=== PATIENT | female | born 1945 | race Caucasian/White ===

== ENCOUNTER 2016-06-11 10:15 | Emergency (ER) | payer MEDICARE, MEDICAID ==
[2016-06-11 10:41] VITALS: BP 148/92
[2016-06-11] MEDS ORDERED: Ondansetron INJ* 2 MG/ML VIAL IV ONE (11:17)
[2016-06-11] MEDS ORDERED: NS 0.9% 1000 ML* 1,000 ML BOLUS ONE (11:17)
--- NOTE | 2016-06-11 11:17 | UC ---
Abdominal Pain Female HPI - HPI Summary HPI Summary: Copious vomiting, diarrhea, and nausea starting 5 days ago. Has not been able to keep track of how many episodes per day. Feels sweaty and feverish, no measured temps. Has had similar episodes before, saw GI about a year ago and "they couldn't find anything wrong with me." Thought it was her house water that was making her ill because of high sulfur content. No hx of abdominal surgery. In Apr 2015 ? pancreatitis. Denies melena, BRBPR; occasional trace blood in vomit. - History of Current Complaint Chief Complaint: UCGI Stated Complaint: VOMITING/DIARRHEA Time Seen by Provider: 06/11/16 10:37 Hx Obtained From: Patient ?: No Onset/Duration: Gradual Onset, Lasting Days Timing: Constant Severity Initially: Moderate Severity Currently: Moderate Location: Diffuse Radiates: Yes Radiates to: Flank - R Character: Cramping, Dull Aggravating Factor(s): Food Alleviating Factor(s): NPO Associated Signs and Symptoms: Positive: Urinary Symptoms - freq, Decreased Appetite, Nausea, Vomiting, Diarrhea. Negative: Cough, Blood in Stool Allergies/Adverse Reactions: Allergies Allergy/AdvReac Type Severity Reaction Status Date / Time Ketorolac Tromethamine Allergy Severe Anaphylatic Verified 06/11/16 10:41 [From Toradol] Shock Latex Allergy Severe Anaphylatic Verified 06/11/16 10:41 Shock Aspirin Allergy Intermediate Anxiety Verified 06/11/16 10:41 Levofloxacin [From Levaquin] Allergy Intermediate Vomiting Verified 06/11/16 10: 41 Penicillins Allergy Intermediate Hives Verified 06/11/16 10:41 Sulfa Drugs Allergy Intermediate Hives Verified 06/11/16 10:41 Ceftriaxone Allergy Mild Hives Verified 06/11/16 10:41 Ibuprofen AdvReac Intermediate Abdominal Verified 06/11/16 10:41 Pain PMH/Surg Hx/FS Hx/Imm Hx Endocrine History Of: Reports: Diabetes Denies: Thyroid Disease Cardiovascular History Of: Denies: Cardiac Disorders, Hypertension, Congestive Heart Failure Respiratory History Of: Reports: COPD, Asthma, Pneumonia, Pulmonary Embolism GI/ History Of: Denies: Ulcer, Gastrointestinal Bleed, Renal Disease Neurological History Of: Reports: Migraine Psychological History Of: Reports: Depression - Surgical History Surgical History: Yes Surgery Procedure, Year, and Place: hysterectomy, knee, sinus, wrist injury repaired - Family History Known Family History: Positive: Cardiac Disease, Diabetes, Respiratory Disease - Social History Alcohol Use: None Substance Use Type: None Smoking Status (MU): Heavy Every Day Tobacco Smoker Type: Cigarettes Amount Used/How Often: 1/2 PPD Household Exposure Type: Cigarettes - Immunization History Most Recent Influenza Vaccination: 2012- jan Most Recent Tetanus Shot: 2009 Most Recent Pneumonia Vaccination: 2009 Review of Systems Constitutional: Fatigue Skin: Negative Eyes: Negative ENT: Negative Respiratory: Negative Cardiovascular: Negative Gastrointestinal: Abdominal Pain, Vomiting, Diarrhea Genitourinary: Negative Motor: Negative Neurovascular: Negative Musculoskeletal: Negative Neurological: Negative Psychological: Negative All Other Systems Reviewed And Are Negative: Yes Physical Exam Triage Information Reviewed: Yes Appearance: Pain Distress, Obese Vital Signs: Initial Vital Signs Temp 98.1 F 06/11/16 10:30 Resp 20 06/11/16 10:30 BP 148/92 06/11/16 10:30 Pulse Ox 96 06/11/16 10:30 Vital Signs Reviewed: Yes Eye Exam: Normal Eyes: Positive: Conjunctiva Clear ENT: Positive: Hearing grossly normal, TMs normal, Other: - MM very dry and pasty. Negative: Pharyngeal erythema, Nasal congestion Dental Exam: Other - dentures Neck exam: Normal Neck: Positive: Supple, Nontender, No Lymphadenopathy Respiratory Exam: Normal Respiratory: Positive: Chest non-tender, Lungs clear, Normal breath sounds, No respiratory distress, No accessory muscle use Cardiovascular: Positive: No Murmur, Tachycardia - 100 on exam Abdomen Description: Positive: Soft, CVA Tenderness (R) - mild. Negative: Nontender - diffuse mild tenderness, barb epigastric, Distended, Guarding, McBurney's Point Tenderness, Peritoneal Signs Bowel Sounds: Positive: Present Musculoskeletal Exam: Normal Neurological Exam: Normal Neurological: Positive: Alert, Muscle Tone Normal, Fatigued Psychological Exam: Normal Skin Exam: Normal Abd Pain Female Course/Dx - Differential Dx/Diagnosis Provider Diagnoses: vomiting. diarrhea. abdominal pain. dehydration - Physician Notification/Consults Discussed Patient Care With: Courtney Ellis Time Discussed With Above Provider: 11:18 Instructed by Provider To: MD Will See In ED Discharge - Discharge Plan Condition: Stable Disposition: TRANS HIGHER L OF CARE FAC
[2016-06-11] MEDS ORDERED: Ondansetron INJ* 2 MG/ML VIAL ONE (11:33)
== END 2016-06-11 12:02 | disposition short-term general hospital (02) ==
LOC: UCEAST 10:15
DX: R11.10 Vomiting, unspecified (principal); R19.7 Diarrhea, unspecified; R10.84 Generalized abdominal pain; E86.0 Dehydration; E66.9 Obesity, unspecified; Z88.5 Allergy status to narcotic agent; Z88.6 Allergy status to analgesic agent; Z88.1 Allergy status to other antibiotic agents; Z88.2 Allergy status to sulfonamides; Z88.0 Allergy status to penicillin; F17.210 Nicotine dependence, cigarettes, uncomplicated
CPT/HCPCS: 81002; 96360; 96361; 96374; 96376; 99213; G0463; J2405

== ENCOUNTER 2016-06-11 12:18 | Emergency (ER) | payer MEDICARE, MEDICAID ==
[2016-06-11] MEDS ORDERED: Ondansetron INJ* 2 MG/ML VIAL ONE (13:11)
[2016-06-11] MEDS ORDERED: Ondansetron INJ* 2 MG/ML VIAL IV ONE (13:11)
[2016-06-11 13:31] LABS: Hematocrit 42 % (35-47); Hemoglobin 13.5 g/dl (12.0-16.0); Mean Corpuscular HGB Conc 32 g/dl (31-36); Mean Corpuscular Hemoglobin 28 pg (27-31); Mean Corpuscular Volume 88 fL (80-97); Mean Platelet Volume 9 um3 (7.4-10.4); Red Blood Count 4.79 10^6/ul (4.0-5.4); Red Cell Distribution Width 18 % (10.5-15); White Blood Count 7.1 10^3/ul (3.5-10.8)
[2016-06-11 13:53] LABS: Albumin 3.7 g/dL (3.2-5.2); BUN/Creatinine Ratio 11.4 (8-20); C Reactive Protein 5.84 mg/L (< 5.00); Calcium 9.2 mg/dL (8.6-10.3); EGFR African American 82.2 (>60); EGFR Non-African American 63.9 (>60); Globulin 2.8 g/dL (2-4); Potassium 3.3 mmol/L (3.5-5.0); Total Bilirubin 0.8 mg/dL (0.2-1.0); Total Protein 6.5 g/dL (6.4-8.9)
[2016-06-11 13:54] LABS: Troponin I 0.02 ng/mL (<0.04)
[2016-06-11 14:44] LABS: Urine Bacteria Absent (Absent); Urine Bilirubin Negative (Negative); Urine Glucose Negative (Negative); Urine Nitrite Negative (Negative)
[2016-06-11] MEDS ORDERED: Iodixanol* (CONTRAST) 320 MG/ML 100 ML SDV IV ONE (15:08)
--- NOTE | 2016-06-11 15:43 | RAD ---
INDICATION: Abdominal pain, nausea vomiting and diarrhea. COMPARISON: Comparison is made with a prior CT angiogram of the chest from February 17, [address] of the abdomen and pelvis from April 07, 2015. TECHNIQUE: A CT scan of the abdomen and pelvis was performed with intravenous and oral contrast following intravenous injection of 110 ml of Visipaque 320 nonionic contrast. Contiguous axial sections were obtained from the lung bases through the symphysis pubis. Images were reconstructed in the coronal and sagittal planes. FINDINGS: There is mild dependent bilateral lower lobe subsegmental atelectasis. No pleural effusion is present. The liver and spleen are within normal limits in size without significant focal abnormality. No calcified gallstones are seen. The pancreas appears to be within normal limits in size. There is a 2.6 cm soft tissue density left adrenal mass which is unchanged from prior studies favoring a benign adenoma. The right adrenal gland appears normal. The kidneys are normal in size. No hydronephrosis is present. No significant focal renal abnormality is seen. The aorta is normal in caliber with moderate to severe calcific plaque present. No significant enlarged retroperitoneal lymph nodes are seen. The stomach, small and large bowel appear nondistended. There is increased soft tissue density present in the region of the cardia of the stomach possibly due to incomplete distention although a mass cannot be excluded. The appendix appears to be within normal limits. There is thickening of the wall of the distal small bowel and throughout the colon from the cecum to the rectum consistent with an enterocolitis. No free intraperitoneal air or fluid is seen. No significant focal osseous abnormality is seen. IMPRESSION: 1. ENTEROCOLITIS CONSIDER INFECTIOUS, INFLAMMATORY BOWEL AND LESS LIKELY ISCHEMIC ETIOLOGIES. 2. INCREASED SOFT TISSUE DENSITY IN THE CARDIA OF THE STOMACH POSSIBLY DUE TO INCOMPLETE DISTENTION ALTHOUGH CANNOT EXCLUDE A MASS. CONSIDER AN UPPER GI SERIES OR ENDOSCOPY FOR FURTHER EVALUATION. 3. STABLE LEFT ADRENAL MASS.
[2016-06-11] MEDS ORDERED: Potassium Chloride LIQUID* 20 MEQ PACKET PO ONE (16:16)
--- NOTE | 2016-06-11 16:18 | ED ---
lilia Interiano Timothy, scribed for Fredrick Ball MD on 06/11/16 at 1238 . Abdominal Pain/Female - HPI Summary HPI Summary: Kavya Trejo is a 70 yo female presenting to [facility] as a transfer from with intermittent 10/10 sharp abd pain and CP and N/V/D since 06/06/16. She also c/o subjective fever. She states her pain increases and she vomits with any food intake. She has been treated with NS 500 ml Bolus. Her MHx includes DM, migraine, syncopy, COPD, asthma, PE, GERD, PTSD, depression, MRSA, and tobacco. - History of Current Complaint Chief Complaint: EDNauseaVomitDiarrh Stated Complaint: VOMITTING/DIARRHEA Time Seen by Provider: 06/11/16 12:27 Hx Obtained From: Patient Onset/Duration: Sudden Onset, Lasting Days, Still Present Timing: Intermittent Episode Lasting - minutes Severity Initially: Moderate Severity Currently: Mild Pain Intensity: 0 Pain Scale Used: 0-10 Numeric Radiates: No Character: Sharp Aggravating Factor(s): Food Alleviating Factor(s): Nothing Associated Signs and Symptoms: Positive: Fever, Chest Pain, Nausea, Vomiting, Diarrhea Allergies/Adverse Reactions: Allergies Allergy/AdvReac Type Severity Reaction Status Date / Time Ketorolac Tromethamine Allergy Severe Anaphylatic Verified 06/11/16 12:28 [From Toradol] Shock Latex Allergy Severe Anaphylatic Verified 06/11/16 12:28 Shock Aspirin Allergy Intermediate Anxiety Verified 06/11/16 12:28 Levofloxacin [From Levaquin] Allergy Intermediate Vomiting Verified 06/11/16 12: 28 Penicillins Allergy Intermediate Hives Verified 06/11/16 12:28 Sulfa Drugs Allergy Intermediate Hives Verified 06/11/16 12:28 Ceftriaxone Allergy Mild Hives Verified 06/11/16 12:28 Ibuprofen AdvReac Intermediate Abdominal Verified 06/11/16 12:28 Pain PMH/Surg Hx/FS Hx/Imm Hx Endocrine/Hematology History: Reports: Hx Blood Transfusions, Hx Diabetes Denies: Hx Systemic Lupus Erythematosus, Hx Thyroid Disease Cardiovascular History: Reports: Hx Peripheral Vascular Disease, Hx Syncope Denies: Hx Congestive Heart Failure, Hx Hypertension Respiratory History: Reports: Hx Asthma, Hx Chronic Bronchitis, Hx Chronic Obstructive Pulmonary Disease (COPD), Hx Pneumonia, Hx Pulmonary Embolism, Other Respiratory Problems/Disorders - COPD GI History: Reports: Hx Gastroesophageal Reflux Disease, Hx Hiatal Hernia Denies: Hx Gastrointestinal Bleed, Hx Ulcer History: Denies: Hx Dialysis, Hx Renal Disease Musculoskeletal History: Reports: Hx Back Problems Denies: Hx Arthritis, Hx Rheumatoid Arthritis Sensory History: Reports: Hx Cataracts, Hx Contacts or Glasses Opthamlomology History: Reports: Hx Cataracts, Hx Contacts or Glasses Neurological History: Reports: Hx Migraine Psychiatric History: Reports: Hx Depression, Hx Post Traumatic Stress Disorder, Other Psychiatric Issues/Disorders - on "nerve pills" prior. Family concerned about depression. 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 Denies: Hx Clostridium Difficile, Hx Hepatitis, Hx Human Immunodeficiency Virus (HIV), Hx Shingles, Hx Tuberculosis, Hx Known/Suspected VRE, Hx Known/ Suspected VRSA, History Other Infectious Disease, Traveled Outside the [place] in Last 30 Days - Family History Known Family History: Positive: Cardiac Disease, Diabetes, Respiratory Disease, Other - cancer, kidney failure - Social History Alcohol Use: None Substance Use Type: Reports: None Hx Tobacco Use: Yes Smoking Status (MU): Heavy Every Day Tobacco Smoker Type: Cigarettes Amount Used/How Often: 1/2 PPD Review of Systems Positive: Fever - subjective Eyes: Negative ENT: Negative Positive: Chest Pain Respiratory: Negative Positive: Abdominal Pain, Vomiting, Diarrhea, Nausea Genitourinary: Negative Musculoskeletal: Negative Skin: Negative Neurological: Negative Psychological: Normal All Other Systems Reviewed And Are Negative: Yes Physical Exam - Summary Physical Exam Summary: VITAL SIGNS: Reviewed. GENERAL: Patient is an obese female who is lying comfortable in the stretcher. Patient is not in any acute respiratory distress. HEAD AND FACE: Normocephalic and atraumatic. EYES: PERRLA, EOMI x 2, No injected conjunctiva. EARS: Hearing grossly intact. Ear canals and tympanic membranes are WNL. MOUTH: Oropharynx within normal limits. NECK: Supple, trachea is midline, no adenopathy, no JVD. CHEST: Symmetric, no tenderness at palpation LUNGS: Clear to auscultation bilaterally. No wheezing or crackles. CVS: RRR,, S1 and S2 present, no murmurs or gallops appreciated. ABDOMEN: Soft, RLQ tenderness. No signs of distention. Positive bowel sounds. No rebound no guarding, and no masses palpated. No abdominal bruit or pulsations. EXTREMITIES: FROM in all major joints, no edema, no cyanosis or clubbing. NEURO: Alert and oriented x 3. No acute neurological deficits. Speech is normal. SKIN: Dry and warm Triage Information Reviewed: Yes Vital Signs On Initial Exam: Initial Vitals Temp Pulse Resp BP Pulse Ox 99.2 F 69 18 113/79 96 06/11/16 12:25 06/11/16 12:25 06/11/16 12:25 06/11/16 12:25 06/11/16 12:25 Vital Signs Reviewed: Yes Diagnostics - Vital Signs Vital Signs Temp Pulse Resp BP Pulse Ox 06/11/16 12:25 99.2 F 69 18 113/79 96 - Laboratory Lab Results: Lab Results 06/11/16 06/11/16 06/11/16 Range/Units 13:19 13:19 13:19 WBC 7.1 (3.5-10.8) 10^3/ul RBC 4.79 (4.0-5.4) 10^6/ul Hgb 13.5 (12.0-16.0) g/dl Hct 42 (35-47) % MCV 88 (80-97) fL MCH 28 (27-31) pg MCHC 32 (31-36) g/dl RDW 18 H (10.5-15) % Plt Count 206 (150-450) 10^3/ul MPV 9 (7.4-10.4) um3 Neut % (Auto) 46.9 (38-83) % Lymph % (Auto) 40.9 (25-47) % Imperial % (Auto) 5.6 (1-9) % Eos % (Auto) 5.7 (0-6) % Baso % (Auto) 0.9 (0-2) % Absolute Neuts (auto) 3.3 (1.5-7.7) 10^3/ul Absolute Lymphs (auto) 2.9 (1.0-4.8) 10^3/ul Absolute Monos (auto) 0.4 (0-0.8) 10^3/ul Absolute Eos (auto) 0.4 (0-0.6) 10^3/ul Absolute Basos (auto) 0.1 (0-0.2) 10^3/ul Absolute Nucleated RBC 0 10^3/ul Nucleated RBC % 0 Sodium 135 (133-145) mmol/L Potassium 3.3 L (3.5-5.0) mmol/L Chloride 103 (101-111) mmol/L Carbon Dioxide 31 (22-32) mmol/L Anion Gap 1 L (2-11) mmol/L BUN 10 (6-24) mg/dL Creatinine 0.88 (0.51-0.95) mg/dL Est GFR ( Amer) 82.2 (>60) Est GFR (Non-Af Amer) 63.9 (>60) BUN/Creatinine Ratio 11.4 (8-20) Glucose 94 (70-100) mg/dL Lactic Acid 1.0 (0.5-2.0) mmol/L Calcium 9.2 (8.6-10.3) mg/dL Total Bilirubin 0.80 (0.2-1.0) mg/dL AST 12 L (13-39) U/L ALT 3 L (7-52) U/L Alkaline Phosphatase 77 (34-104) U/L Total Creatine Kinase 48 (10-223) U/L Troponin I 0.02 (<0.04) ng/mL C-Reactive Protein 5.84 H (< 5.00) mg/L B-Natriuretic Peptide ( - 100) pg/mL Total Protein 6.5 (6.4-8.9) g/dL Albumin 3.7 (3.2-5.2) g/dL Globulin 2.8 (2-4) g/dL Albumin/Globulin Ratio 1.3 (1-3) Amylase 22 L (29-103) U/L Lipase 24 (11.0-82.0) U/L /10/21 Range/Units 13:19 WBC (3.5-10.8) 10^3/ul RBC (4.0-5.4) 10^6/ul Hgb (12.0-16.0) g/dl Hct (35-47) % MCV (80-97) fL MCH (27-31) pg MCHC (31-36) g/dl RDW (10.5-15) % Plt Count (150-450) 10^3/ul MPV (7.4-10.4) um3 Neut % (Auto) (38-83) % Lymph % (Auto) (25-47) % Imperial % (Auto) (1-9) % Eos % (Auto) (0-6) % Baso % (Auto) (0-2) % Absolute Neuts (auto) (1.5-7.7) 10^3/ul Absolute Lymphs (auto) (1.0-4.8) 10^3/ul Absolute Monos (auto) (0-0.8) 10^3/ul Absolute Eos (auto) (0-0.6) 10^3/ul Absolute Basos (auto) (0-0.2) 10^3/ul Absolute Nucleated RBC 10^3/ul Nucleated RBC % Sodium (133-145) mmol/L Potassium (3.5-5.0) mmol/L Chloride (101-111) mmol/L Carbon Dioxide (22-32) mmol/L Anion Gap (2-11) mmol/L BUN (6-24) mg/dL Creatinine (0.51-0.95) mg/dL Est GFR ( Amer) (>60) Est GFR (Non-Af Amer) (>60) BUN/Creatinine Ratio (8-20) Glucose (70-100) mg/dL Lactic Acid (0.5-2.0) mmol/L Calcium (8.6-10.3) mg/dL Total Bilirubin (0.2-1.0) mg/dL AST (13-39) U/L ALT (7-52) U/L Alkaline Phosphatase (34-104) U/L Total Creatine Kinase (10-223) U/L Troponin I (<0.04) ng/mL C-Reactive Protein (< 5.00) mg/L B-Natriuretic Peptide 134 H ( - 100) pg/mL Total Protein (6.4-8.9) g/dL Albumin (3.2-5.2) g/dL Globulin (2-4) g/dL Albumin/Globulin Ratio (1-3) Amylase (29-103) U/L Lipase (11.0-82.0) U/L Result Diagrams: 06/11/16 13:19 06/11/16 13:19 Lab Statement: Any lab studies that have been ordered have been reviewed, and results considered in the medical decision making process. - CT A/P CT Interpretation: Positive (See Comments) - IMPRESSION: 1. ENTEROCOLITIS CONSIDER INFECTIOUS, INFLAMMATORY BOWEL AND LESS LIKELY ISCHEMIC ETIOLOGIES. 2. INCREASED SOFT TISSUE DENSITY IN THE CARDIA OF THE STOMACH POSSIBLY DUE TO INCOMPLETE DISTENTION ALTHOUGH CANNOT EXCLUDE A MASS. CONSIDER AN UPPER GI SERIES OR ENDOSCOPY FOR FURTHER EVALUATION. 3. STABLE LEFT ADRENAL MASS. CT Interpretation Completed By: Radiologist - EKG 1249 Cardiac Rate: NL - 67 EKG Interpretation: NSr @ 67 BPM, no ST elevations Re-Evaluation - Re-Evaluation First Eval Re-Evaluation Time: 16:10 Change: Improved Comment: Pt feels much better, and is agreeable to be discharged. Abdominal Pain Fem Course/Dx - Course Course Of Treatment: Kavya Trejo is a 70 yo female presenting to [facility] as a transfer from with intermittent 10/10 sharp abd pain and CP and N/V/D since 06/06/16. She also c/o subjective fever. She states her pain increases and she vomits with any food intake. She has been treated with NS 500 ml Bolus. Her MHx includes DM, migraine, syncope, COPD, asthma, PE, GERD, PTSD, depression, MRSA, and tobacco. In the ED course she was given IVF and Zofran for nausea. Blood work shows a slight hypokalemia of 3.3, CRP 5.8. UA negative. Abdominal and pelvic CT IMPRESSION: 1. ENTEROCOLITIS CONSIDER INFECTIOUS, INFLAMMATORY BOWEL AND LESS LIKELY ISCHEMIC ETIOLOGIES. 2. INCREASED SOFT TISSUE DENSITY IN THE CARDIA OF THE STOMACH POSSIBLY DUE TO INCOMPLETE DISTENTION ALTHOUGH CANNOT EXCLUDE A MASS. CONSIDER AN UPPER GI SERIES OR ENDOSCOPY FOR FURTHER EVALUATION. 3. STABLE LEFT ADRENAL MASS. After patient was given above medications all her symptoms have resolved. She was given KCL and she is able to tolerate PO. No nausea or vomiting or diarrhea in the ED. I discussed all the findings and test results with the patient. Patient was instructed to return to the emergency room immediately if any of the symptoms return or worsens. They were explained the possibility of an early abdominal pathology which was not detected at this time despite the physical exam and testing. They understand and agree. Abdominal exam before discharge: Soft, NT. No signs of distention. BS present. No rebound no guarding, and no masses palpated. Patient is alert and oriented and hemodynamically stable. Patient is to follow up with primary care physician in the next 2 to 3 days. Patient agree and understands. - Diagnoses Differential Diagnosis: Positive: Appendicitis, Constipation, Diverticulitis, Pancreatitis Provider Diagnoses: Enterocolitis, Abdominal pain, Nausea and vomiting Discharge - Discharge Plan Condition: Stable Disposition: HOME Prescriptions: Ondansetron ODT TAB* [Zofran Odt TAB*] 4 mg PO Q6H PRN #10 tab.odt PRN Reason: Vomiting Patient Education Materials: Acute Abdominal Pain (ED), Acute Nausea and Vomiting (ED) Referrals: Priyanka Huff RN [Primary Care Provider] - 2 Days Additional Instructions: Please follow up with your primary care physician regarding your visit to the emergency department. Return to the emergency department with any new or recurring symptoms. The documentation as recorded by the lilia asif Timothy accurately reflects the service I personally performed and the decisions made by Quinn landin Walter, MD.
[2016-06-11 16:30] VITALS: BP 154/100
== END 2016-06-11 16:30 | disposition home or self-care (01) ==
LOC: ED 12:18
DX: K52.9 Noninfective gastroenteritis and colitis, unspecified (principal); R10.9 Unspecified abdominal pain; R11.2 Nausea with vomiting, unspecified; R50.9 Fever, unspecified; R07.9 Chest pain, unspecified; F17.210 Nicotine dependence, cigarettes, uncomplicated; E86.0 Dehydration; E66.9 Obesity, unspecified; Z88.5 Allergy status to narcotic agent; Z88.6 Allergy status to analgesic agent; Z88.1 Allergy status to other antibiotic agents; Z88.2 Allergy status to sulfonamides; Z88.0 Allergy status to penicillin
CPT/HCPCS: 36415; 74177; 80053; 81002; 81003; 81015; 82150; 82550; 83605; 83690; 83880; 84484; 85025; 85610; 85730; 86140; 93005; 96360; 96361; 96374; 96375; 96376; 99213; 99283; G0463; J2405; Q9967

== ENCOUNTER 2016-12-20 13:35 | Inpatient (IN) | payer MEDICARE, MEDICAID ==
[2016-12-20] MEDS ORDERED: methylPREDNISolone 125 MG* 2 ML VIAL IV ONE (14:44)
[2016-12-20] MEDS ORDERED: Albuterol/Ipratropium NEB.SOL* Albuterol 2.5 MG/Ipratropium 0.5 MG 3 ML INH ONE ×2 (14:44→17:51)
[2016-12-20 14:58] LABS: Hematocrit 40 % (35-47); Hemoglobin 12.7 g/dl (12.0-16.0); Mean Corpuscular HGB Conc 32 g/dl (31-36); Mean Corpuscular Hemoglobin 28 pg (27-31); Mean Corpuscular Volume 86 fL (80-97); Mean Platelet Volume 9 um3 (7.4-10.4); Red Blood Count 4.61 10^6/ul (4.0-5.4); Red Cell Distribution Width 16 % (10.5-15); White Blood Count 6.8 10^3/ul (3.5-10.8)
--- NOTE | 2016-12-20 15:07 | RAD ---
HISTORY: Cough COMPARISONS: June 03, 2016, May 01, 2016 VIEWS: 1: frontal portable view of the chest at 2:55 PM FINDINGS: LINES AND TUBES: None. CARDIOMEDIASTINAL SILHOUETTE: There is fullness of the right hilum. The aorta is tortuous. PLEURA: The costophrenic angles are sharp. No pleural abnormalities are noted. LUNG PARENCHYMA: There is an ill-defined nodular density of the right lower lung measuring 1.4 cm. ABDOMEN: The upper abdomen is clear. There is no subphrenic gas. BONES AND SOFT TISSUES: No bone or soft tissue abnormalities are noted. IMPRESSION: FULLNESS OF THE RIGHT HILUM WITH ILL-DEFINED NODULAR DENSITY OF THE RIGHT LOWER LUNG. RECOMMEND FURTHER EVALUATION WITH CONTRAST ENHANCED CT OF THE CHEST
[2016-12-20 15:14] LABS: Albumin 3.7 g/dL (3.2-5.2); BUN/Creatinine Ratio 10.1 (8-20); C Reactive Protein 23.64 mg/L (< 5.00); Calcium 9.5 mg/dL (8.6-10.3); EGFR African American 71.5 (>60); EGFR Non-African American 55.6 (>60); Globulin 3.4 g/dL (2-4); Potassium 3.9 mmol/L (3.5-5.0); Total Bilirubin 0.5 mg/dL (0.2-1.0); Total Protein 7.1 g/dL (6.4-8.9)
[2016-12-20 15:15] LABS: Troponin I 0.01 ng/mL (<0.04)
[2016-12-20] MEDS ORDERED: HYDROmorphone INJ* 1 MG/ML CARPUJECT SYRINGE IV ONE (16:13)
[2016-12-20] MEDS ORDERED: Ondansetron INJ* 2 MG/ML VIAL IV ONE (16:13)
[2016-12-20] MEDS ORDERED: Iodixanol* (CONTRAST) 320 MG/ML 100 ML SDV IV ONE (16:46)
--- NOTE | 2016-12-20 17:16 | RAD ---
INDICATION: Cough. Pneumonia. Prominent right hilum. Proximal nodularity. COMPARISON: Chest x-ray December 20, 2016 CT chest/abdomen/pelvis February 14, 2014 TECHNIQUE: Axial source images were obtained from the thoracic inlet to the hemidiaphragms. Coronal and sagittal reconstructed images were acquired. 80 mL of Visipaque 320 was injected The visualized neck to include the thyroid appear normal. Chest wall: There are no acute abnormalities of the bony thorax or chest wall. There is no supraclavicular, infraclavicular, or axillary lymphadenopathy. Lungs : There are patchy, peripheral, bilateral areas of parenchymal nodularity likely related to scarring from a prior inflammatory process. The findings in the right hemithorax are stable. The findings are left are slightly more conspicuous. A superimposed acute inflammatory process is not excluded and therefore follow-up is recommended as indicated clinically. There is coarsening of interstitium. There are no endobronchial lesions. Cardiomediastinal structures: The heart is normal in size. There is no pericardial effusion. There is no evidence of aortic aneurysm or dissection. The pulmonary vessels appear normal. There are mildly prominent mediastinal lymph nodes in the pretracheal space and right hilum but the findings are stable. The esophagus appears normal. Pleura : There are no pleural-based masses or effusions. Other: There are no acute or significant CT findings of the visualized upper abdomen. IMPRESSION: SCATTERED AREAS OF LINEAR PARENCHYMAL CHANGE AND NODULARITY STABLE IN THE RIGHT CHEST BUT MILDLY PROGRESSIVE THE LEFT CHEST. AN INFLAMMATORY PROCESS WITH SCARRING IS CONSIDERED MOST LIKELY. SUGGEST A FOLLOW-UP CHEST RADIOGRAPH IN ONE MONTH AND DEPENDING UPON THE FINDINGS CONSIDER NONCONTRAST CT IMAGING OF THE CHEST IN 3 MONTHS.
--- NOTE | 2016-12-20 18:56 | ED ---
Shabbir Interiano Thomas, scribed for Danial Caballero MD on 12/20/16 at 1436 . Shortness of Breath - HPI Summary HPI Summary: The pt is a 71 y/o F with a PMHx of COPD and PNA c/o SOB that began four days ago. The SOB is aggravated and alleviated by nothing. The patient has treated the SOB with her nebulizer treatment every 5 hours. These treatments have not alleviated the SOB. She is on home oxygen, but she has not been using it for an unclear reason. Pt additionally c/o a cough (with new-onset yellow and green production), sore throat, fatigue, and myalgia. She also notes a pleuritic CP. Pt denies fever in the ED, although she speculates she had on before. PMHx: COPD , PNA. SHx: heavy current smoker. - History of Current Complaint Chief Complaint: EDShortnessOfBreath Time Seen by Provider: 12/20/16 14:01 Hx Obtained From: Patient Onset/Duration: Lasting Days - onset 4 days ago, Still Present Timing: Constant Dyspnea At: Rest Aggrevating Factors: Nothing Alleviating Factors: Nothing Associated Signs & Symptoms: Cough (Productive) - with yellow and green production (new onset), Chest Pain w/Cough - pleuritic CP - Allergy/Home Medications Allergies/Adverse Reactions: Allergies Allergy/AdvReac Type Severity Reaction Status Date / Time Ketorolac Tromethamine Allergy Severe Anaphylatic Verified 06/11/16 12:28 [From Toradol] Shock Latex Allergy Severe Anaphylatic Verified 06/11/16 12:28 Shock Aspirin Allergy Intermediate Anxiety Verified 06/11/16 12:28 Levofloxacin [From Levaquin] Allergy Intermediate Vomiting Verified 06/11/16 12: 28 Penicillins Allergy Intermediate Hives Verified 06/11/16 12:28 Sulfa Drugs Allergy Intermediate Hives Verified 06/11/16 12:28 Ceftriaxone Allergy Mild Hives Verified 06/11/16 12:28 Ibuprofen AdvReac Intermediate Abdominal Verified 06/11/16 12:28 Pain Home Medications: Home Medications Clotrimazole MORRO* [Mycelex MORRO*] 10 mg PO .FIVE TIME A DAY 12/20/16 [ History Confirmed 12/20/16] Ergocalciferol CAP* [Drisdol CAP*] 50,000 unit PO Q7D 12/20/16 [History Confirmed 12/20/16] Roflumilast (NF) [Daliresp (NF)] 500 mcg PO DAILY 12/20/16 [History Confirmed ] Sodium Chloride 0.9% IRRIG* 250 ml .SEE ORDER DAILY 12/20/16 [History Confirmed 12/20/16] PMH/Surg Hx/FS Hx/Imm Hx Previously Healthy: No Endocrine/Hematology History: Reports: Hx Blood Transfusions, Hx Diabetes Denies: Hx Systemic Lupus Erythematosus, Hx Thyroid Disease Cardiovascular History: Reports: Hx Peripheral Vascular Disease, Hx Syncope Denies: Hx Congestive Heart Failure, Hx Hypertension Respiratory History: Reports: Hx Asthma, Hx Chronic Bronchitis, Hx Chronic Obstructive Pulmonary Disease (COPD), Hx Pneumonia, Hx Pulmonary Embolism, Other Respiratory Problems/Disorders - COPD GI History: Reports: Hx Gastroesophageal Reflux Disease, Hx Hiatal Hernia Denies: Hx Gastrointestinal Bleed, Hx Ulcer History: Denies: Hx Dialysis, Hx Renal Disease Musculoskeletal History: Reports: Hx Back Problems Denies: Hx Arthritis, Hx Rheumatoid Arthritis Sensory History: Reports: Hx Cataracts, Hx Contacts or Glasses Opthamlomology History: Reports: Hx Cataracts, Hx Contacts or Glasses Neurological History: Reports: Hx Migraine Psychiatric History: Reports: Hx Depression, Hx Post Traumatic Stress Disorder, Other Psychiatric Issues/Disorders - on "nerve pills" prior. Family concerned about depression. 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 Denies: Hx Clostridium Difficile, Hx Hepatitis, Hx Human Immunodeficiency Virus (HIV), Hx Shingles, Hx Tuberculosis, Hx Known/Suspected VRE, Hx Known/ Suspected VRSA, History Other Infectious Disease, Traveled Outside the [place] in Last 30 Days - Family History Known Family History: Positive: Cardiac Disease, Diabetes, Respiratory Disease, Other - cancer, kidney failure - Social History Alcohol Use: None Substance Use Type: Reports: None Hx Tobacco Use: Yes Smoking Status (MU): Heavy Every Day Tobacco Smoker Type: Cigarettes Amount Used/How Often: 1/2 PPD Review of Systems Positive: Other - POS: fatigue. Negative: Fever - afebrile in ED but she suspects a fever in the last few days Positive: Sore Throat Positive: Chest Pain - she has a pleuritic CP Positive: Shortness Of Breath - onset 4 days ago, Cough - with a new-onset yellow and green production Positive: Myalgia All Other Systems Reviewed And Are Negative: Yes Physical Exam Triage Information Reviewed: Yes Vital Signs On Initial Exam: Initial Vitals Temp Pulse Resp BP Pulse Ox 97.8 F 103 20 90/67 92 12/20/16 13:48 12/20/16 13:48 12/20/16 13:48 12/20/16 13:48 12/20/16 13:48 Vital Signs Reviewed: Yes Appearance: Positive: Well-Appearing, No Pain Distress Skin: Positive: Warm, Skin Color Reflects Adequate Perfusion, Dry Head/Face: Positive: Normal Head/Face Inspection Eyes: Positive: Normal ENT: Positive: Normal ENT inspection Neck: Positive: Supple, Nontender Respiratory/Lung Sounds: Positive: Breath Sounds Present, Other - There are diffuse expiratory wheezes. There is a decreased E to I time. Cardiovascular: Positive: RRR Abdomen Description: Positive: Nontender, Soft Bowel Sounds: Positive: Present Musculoskeletal: Positive: Normal Neurological: Positive: Normal Psychiatric: Positive: Normal, Affect/Mood Appropriate Diagnostics - Vital Signs Vital Signs Temp Pulse Resp BP Pulse Ox 12/20/16 13:48 97.8 F 103 20 90/67 92 - Laboratory Lab Results: Lab Results 12/20/16 12/20/16 12/20/16 Range/Units 14:50 14:50 14:50 WBC 6.8 (3.5-10.8) 10^3/ul RBC 4.61 (4.0-5.4) 10^6/ul Hgb 12.7 (12.0-16.0) g/dl Hct 40 (35-47) % MCV 86 (80-97) fL MCH 28 (27-31) pg MCHC 32 (31-36) g/dl RDW 16 H (10.5-15) % Plt Count 222 (150-450) 10^3/ul MPV 9 (7.4-10.4) um3 Neut % (Auto) 60.9 (38-83) % Lymph % (Auto) 23.5 L (25-47) % Geary % (Auto) 11.0 H (1-9) % Eos % (Auto) 4.0 (0-6) % Baso % (Auto) 0.6 (0-2) % Absolute Neuts (auto) 4.1 (1.5-7.7) 10^3/ul Absolute Lymphs (auto) 1.6 (1.0-4.8) 10^3/ul Absolute Monos (auto) 0.7 (0-0.8) 10^3/ul Absolute Eos (auto) 0.3 (0-0.6) 10^3/ul Absolute Basos (auto) 0 (0-0.2) 10^3/ul Absolute Nucleated RBC 0.01 10^3/ul Nucleated RBC % 0.1 INR (Anticoag Therapy) (0.89-1.11) Sodium 135 (133-145) mmol/L Potassium 3.9 (3.5-5.0) mmol/L Chloride 102 (101-111) mmol/L Carbon Dioxide 27 (22-32) mmol/L Anion Gap 6 (2-11) mmol/L BUN 10 (6-24) mg/dL Creatinine 0.99 H (0.51-0.95) mg/dL Est GFR ( Amer) 71.5 (>60) Est GFR (Non-Af Amer) 55.6 (>60) BUN/Creatinine Ratio 10.1 (8-20) Glucose 97 (70-100) mg/dL Lactic Acid 1.1 (0.5-2.0) mmol/L Calcium 9.5 (8.6-10.3) mg/dL Total Bilirubin 0.50 (0.2-1.0) mg/dL AST 13 (13-39) U/L ALT 4 L (7-52) U/L Alkaline Phosphatase 94 (34-104) U/L Troponin I 0.01 (<0.04) ng/mL C-Reactive Protein 23.64 H (< 5.00) mg/L Total Protein 7.1 (6.4-8.9) g/dL Albumin 3.7 (3.2-5.2) g/dL Globulin 3.4 (2-4) g/dL Albumin/Globulin Ratio 1.1 (1-3) 12/20/ Range/Units 14:50 WBC (3.5-10.8) 10^3/ul RBC (4.0-5.4) 10^6/ul Hgb (12.0-16.0) g/dl Hct (35-47) % MCV (80-97) fL MCH (27-31) pg MCHC (31-36) g/dl RDW (10.5-15) % Plt Count (150-450) 10^3/ul MPV (7.4-10.4) um3 Neut % (Auto) (38-83) % Lymph % (Auto) (25-47) % Geary % (Auto) (1-9) % Eos % (Auto) (0-6) % Baso % (Auto) (0-2) % Absolute Neuts (auto) (1.5-7.7) 10^3/ul Absolute Lymphs (auto) (1.0-4.8) 10^3/ul Absolute Monos (auto) (0-0.8) 10^3/ul Absolute Eos (auto) (0-0.6) 10^3/ul Absolute Basos (auto) (0-0.2) 10^3/ul Absolute Nucleated RBC 10^3/ul Nucleated RBC % INR (Anticoag Therapy) 0.94 (0.89-1.11) Sodium (133-145) mmol/L Potassium (3.5-5.0) mmol/L Chloride (101-111) mmol/L Carbon Dioxide (22-32) mmol/L Anion Gap (2-11) mmol/L BUN (6-24) mg/dL Creatinine (0.51-0.95) mg/dL Est GFR ( Amer) (>60) Est GFR (Non-Af Amer) (>60) BUN/Creatinine Ratio (8-20) Glucose (70-100) mg/dL Lactic Acid (0.5-2.0) mmol/L Calcium (8.6-10.3) mg/dL Total Bilirubin (0.2-1.0) mg/dL AST (13-39) U/L ALT (7-52) U/L Alkaline Phosphatase (34-104) U/L Troponin I (<0.04) ng/mL C-Reactive Protein (< 5.00) mg/L Total Protein (6.4-8.9) g/dL Albumin (3.2-5.2) g/dL Globulin (2-4) g/dL Albumin/Globulin Ratio (1-3) Result Diagrams: 12/20/16 14:50 12/20/16 14:50 Lab Statement: Any lab studies that have been ordered have been reviewed, and results considered in the medical decision making process. - Radiology CXR Xray Interpretation: Positive (See Comments) - FULLNESS OF THE RIGHT HILUM WITH ILL-DEFINED NODULAR DENSITY OF THE RIGHT LOWER LUNG. RECOMMEND FURTHER EVALUATION WITH CONTRAST ENHANCED CT OF THE CHEST. ED Physician has reviewed this report and agrees. Radiology Interpretation Completed By: Radiologist - CT CT Chest CT Interpretation: Positive (See Comments) - SCATTERED AREAS OF LINEAR PARENCHYMAL CHANGE AND NODULARITY STABLE IN THE RIGHT CHEST BUT MILDLY PROGRESSIVE THE LEFT CHEST. AN INFLAMMATORY PROCESS WITH SCARRING IS CONSIDERED MOST LIKELY. SUGGEST A FOLLOW-UP CHEST RADIOGRAPH IN ONE MONTH AND DEPENDING UPON THE FINDINGS CONSIDER NONCONTRAST CT IMAGING OF THE CHEST IN 3 MONTHS. ED Physician has reviewed this report and agrees. CT Interpretation Completed By: Radiologist - EKG 17:21 Cardiac Rate: NL - 85 BPM EKG Interpretation: Sinus rhythm. 15:01 Cardiac Rate: NL - 89 BPM EKG Interpretation: Sinus rhythm. Borderline tachycardia. Course/Dx - Course Course Of Treatment: Ms. Trejo came in with what sounded like an exacerbation of her COPD and she was treated accordingly. She improved some but will need more time and is being admitted to the hospitalist. - Diagnoses Provider Diagnoses: COPD exacerbation - Physician Notifications Discussed Care of Patient With: Moise Thapa Time Discussed With Above Provider: 18:31 Instructed by Provider To: Other - I consulted with Dr. Thapa, hospitalist, who [place] [facility] [place] - Discharge Plan Condition: Fair Disposition: ADMITTED TO [facility] Referrals: Kristian DACOSTA [employer]PERATIONS MANAGER,Priyanka [Primary Care Provider] - The documentation as recorded by the Shabbir asif Thomas accurately reflects the service I personally performed and the decisions made by me, Danial Caballero MD.
[2016-12-20] MEDS ORDERED: Al Hydrox/Mg Hydrox/Simet LIQ* 30 ML UDC PO PRN (19:41)
[2016-12-20] MEDS ORDERED: Albuterol 2.5 MG/3 ML NEB.SOL* (0.083%) INH SCH (20:00)
[2016-12-20] MEDS ORDERED: Ipratropium 0.5MG/2.5ML NEB* 0.5 MG/2.5 ML NEB.SOLN INH SCH (20:00)
[2016-12-20] MEDS: Enoxaparin(*) 40 MG/0.4 ML SYR SUBCUT SCH (22:03)
[2016-12-20] MEDS: Montelukast Sodium TAB* 10 MG PO SCH (22:04)
[2016-12-20] MEDS: methylPREDNISolone SOD 40 MG* 1 ML VIAL IV SCH (22:04)
[2016-12-20] MEDS: Acetaminophen TAB* 325 MG PO PRN (22:04)
[2016-12-20] MEDS: Omeprazole CAP* 20 MG PO SCH (22:04)
[2016-12-20] MEDS: Temazepam CAP* 15 MG PO PRN (22:04)
[2016-12-20] MEDS: Clotrimazole TROCHE* 10 MG TROCHE PO SCH (22:04)
[2016-12-20] MEDS: Cetirizine* 10 MG TAB PO SCH (22:04)
--- NOTE | 2016-12-21 01:37 | HP ---
HISTORY AND PHYSICAL: DATE OF ADMISSION: 12/20/16 CHIEF COMPLAINT: Shortness of breath. HISTORY OF PRESENT ILLNESS: This is a 71-year-old female with history of COPD, presenting with 1 week of shortness of breath, productive cough, and fevers. She notes that her grandsons have been sick recently and she has been around them. She believes that she was having fevers, but did not take her temperature. She normally can walk up a flight of stairs or a city block without becoming short of breath; however, the past few days she has only been able to walk a few steps around the house, but where she needs to stop and rest. She is supposed to be on 2 L of home O2 always; however, she ran out of oxygen 1 year ago and has not had it refilled. She also complains of a sore throat and runny nose. No chest pain. No nausea or vomiting. PAST MEDICAL HISTORY: 1. COPD. 2. Diabetes. MEDICATIONS: Current home medications: 1. Advair. 2. Spiriva. 3. Loratadine. 4. Metformin 500 mg daily. 5. Daliresp 500 mg daily. 6. Montelukast 10 mg daily. 7. Omeprazole 10 mg daily. SOCIAL HISTORY: She is a current tobacco user and smokes 10 cigarettes per day. She does not drink alcohol. 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 REVIEW OF SYSTEMS: She denies weight loss, weight gain, chills but complains of fevers. She denies blurry vision. She complains of a sore throat. She denies chest pain or palpitations, but no shortness of breath and cough productive of yellow sputum. She denies nausea, vomiting, constipation, or diarrhea. Denies headache, blurry vision, weakness, or dizziness. PHYSICAL EXAMINATION GENERAL: Alert, mildly tachypneic, unable to speak a full sentence without taking a breath. VITAL SIGNS: Temp 99.4, heart rate 91, respiratory rate 20, pulse ox 95% on 2 L , and blood pressure 106/72. HEENT: Dry oral mucosa. Pupils are equal, round, and reactive to light. NECK: No cervical lymphadenopathy. No JVP. CHEST: Mildly increased work of breathing, coarse rhonchi bilaterally with a prolonged expiratory phase and scattered wheezes. HEART: Regular, rate, and rhythm. No murmurs. ABDOMEN: Soft, nontender, and nondistended. Ventral hernia is reducible. EXTREMITIES: No edema. No rash. She has no cyanosis, no clubbing. DIAGNOSTIC STUDIES/LAB DATA: Labs on admission: White blood cell 6.8, hemoglobin 12.7, platelets 222. INR 0.94. Sodium 135, potassium 3.9, chloride 102, bicarb 27, BUN 10, creatinine 0.99. Chest x-ray showed fullness of the right hilum with ill-defined nodular density of the right lower lungs. So, a CT scan was obtained which showed scattered areas of linear parenchymal change and nodularity stable in the right chest, but mildly progressive on the left chest. An inflammatory process with scarring is considered most likely. Suggest a followup chest radiograph in 1 month. EKG: Normal sinus rhythm. Normal axis. Normal intervals. Isolated Q wave in lead III. No ST or T-wave changes. ASSESSMENT AND PLAN: This is a 71-year-old lady with history of chronic obstructive pulmonary disease, presenting with 1 week of cough productive of sputum, shortness of breath, and fevers. 1. Acute exacerbation of chronic obstructive pulmonary disease, likely infectious in nature given the history of being around sick children. Treat acute bronchitis with azithromycin and we will start standing nebulizers and Solu-Medrol. She needs oxygen at discharge as she does not have any at home. It is also prudent that she quit smoking tobacco; however, she is not ready to quit. 2. Inflammatory process on chest CT. This should be followed with a repeat chest x-ray in 1month. 3. Chronic hypoxic respiratory failure. She is stable on her home dose of 2 L home O2; however, again she has not had oxygen at home for 1 year. 4. Diabetes. Continue home metformin. 5. Prophylaxis. Subcutaneous Lovenox. [id number]/[facility] #: [id number] [facility]
[2016-12-21] MEDS: Albuterol/Ipratropium NEB.SOL* Albuterol 2.5 MG/Ipratropium 0.5 MG 3 ML INH SCH ×6 (03:23→23:35)
[2016-12-21] MEDS: methylPREDNISolone SOD 40 MG* 1 ML VIAL IV SCH ×3 (04:03→20:09)
[2016-12-21] MEDS: Acetaminophen TAB* 325 MG PO PRN ×2 (04:06→20:10)
[2016-12-21] MEDS: Clotrimazole TROCHE* 10 MG TROCHE PO SCH ×5 (06:00→22:29)
[2016-12-21] MEDS ORDERED: Roflumilast (NF) 500 MCG TAB PO SCH (09:00)
[2016-12-21] MEDS: Azithromycin TAB* 250 MG PO SCH (09:55)
--- NOTE | 2016-12-21 17:41 | PN ---
Subjective Date of Service: 12/21/16 Interval History: Patient feeling better but still sob. Objective Active Medications: Acetaminophen (Tylenol Tab*) 650 mg PO Q4H PRN PRN Reason: FEVER/PAIN Last Admin: 12/21/16 04:06 Dose: 650 mg Al Hydrox/Mg Hydrox/Simethicone (Maalox Plus*) 30 ml PO Q6H PRN PRN Reason: INDIGESTION Albuterol/Ipratropium (Duoneb (Albuterol 2.5 Mg/Ipratropium 0.5 Mg)) 1 neb INH [id number] AWAKE [facility] Last Admin: 12/21/16 14:40 Dose: 1 neb Azithromycin (Zithromax Tab*) 250 mg PO DAILY [facility] Last Admin: 12/21/16 09:55 Dose: 250 mg Cetirizine HCl (Zyrtec*) 10 mg PO BEDTIME [facility] Last Admin: 12/20/16 22:04 Dose: 10 mg Clotrimazole (Mycelex Garrison*) 10 mg PO FIVE TIMES DAILY [facility] Last Admin: 12/21/16 14:30 Dose: 10 mg Enoxaparin Sodium (Lovenox(*)) 40 mg SUBCUT Q24H [facility] Last Admin: 12/20/16 22:03 Dose: 40 mg Ergocalciferol (Drisdol Cap*) 50,000 unit PO Q7D [facility] Metformin HCl (Glucophage*) 500 mg PO QPM [facility] Methylprednisolone Sodium Succinate (Solu-Medrol 40 Mg) 40 mg IV Q8H [facility] Last Admin: 12/21/16 14:30 Dose: 40 mg Montelukast Sodium (Singulair Tab*) 10 mg PO BEDTIME [facility] Last Admin: 12/20/16 22:04 Dose: 10 mg Omeprazole (Prilosec Cap*) 20 mg PO BEDTIME [facility] Last Admin: 12/20/16 22:04 Dose: 20 mg Temazepam (Restoril Cap*) 15 mg PO BEDTIME PRN PRN Reason: INSOMNIA Last Admin: 12/20/16 22:04 Dose: 15 mg Vital Signs 12/20/16 12/20/16 12/20/16 18:41 19:19 20:13 Temperature 97.8 F Pulse Rate 83 94 Respiratory 20 16 16 Rate Blood Pressure 97/73 (mmHg) O2 Sat by Pulse 99 95 Oximetry 12/20/16 12/20/16 12/21/16 20:16 23:29 03:43 Temperature 97.7 F 97.5 F Pulse Rate 86 72 Respiratory 24 24 24 Rate Blood Pressure 97/69 93/68 (mmHg) O2 Sat by Pulse 96 96 Oximetry 12/21/16 12/21/16 12/21/16 06:55 07:51 11:12 Temperature 97.6 F Pulse Rate 64 65 78 Respiratory 24 14 18 Rate Blood Pressure 102/73 (mmHg) O2 Sat by Pulse 97 98 96 Oximetry 12/21/16 14:42 Temperature Pulse Rate 73 Respiratory 14 Rate Blood Pressure (mmHg) O2 Sat by Pulse 96 Oximetry Oxygen Devices in Use Now: Nasal Cannula Appearance: WD/WN woman sitting up in her chair in NAD Eyes: No Scleral Icterus Ears/Nose/Mouth/Throat: Mucous Membranes Moist Neck: NL Appearance and Movements; NL JVP, No Thyroid Enlargement, Masses Respiratory: - - Diffuse wheezing Cardiovascular: RRR, No Edema Abdominal: NL Sounds; No Tenderness; No Distention, No Hepatosplenomegaly Lymphatic: No Cervical Adenopathy Extremities: No Edema, No Clubbing, Cyanosis Skin: No Rash or Ulcers Neurological: Alert and Oriented x 3 Result Diagrams: 12/20/16 14:50 12/20/16 14:50 Additional Lab and Data: Lab Results 12/20/16 12/20/16 12/20/16 Range/Units 14:50 14:50 14:50 WBC 6.8 (3.5-10.8) 10^3/ul RBC 4.61 (4.0-5.4) 10^6/ul Hgb 12.7 (12.0-16.0) g/dl Hct 40 (35-47) % MCV 86 (80-97) fL MCH 28 (27-31) pg MCHC 32 (31-36) g/dl RDW 16 H (10.5-15) % Plt Count 222 (150-450) 10^3/ul MPV 9 (7.4-10.4) um3 Neut % (Auto) 60.9 (38-83) % Lymph % (Auto) 23.5 L (25-47) % Thomas % (Auto) 11.0 H (1-9) % Eos % (Auto) 4.0 (0-6) % Baso % (Auto) 0.6 (0-2) % Absolute Neuts (auto) 4.1 (1.5-7.7) 10^3/ul Absolute Lymphs (auto) 1.6 (1.0-4.8) 10^3/ul Absolute Monos (auto) 0.7 (0-0.8) 10^3/ul Absolute Eos (auto) 0.3 (0-0.6) 10^3/ul Absolute Basos (auto) 0 (0-0.2) 10^3/ul Absolute Nucleated RBC 0.01 10^3/ul Nucleated RBC % 0.1 INR (Anticoag Therapy) (0.89-1.11) Sodium 135 (133-145) mmol/L Potassium 3.9 (3.5-5.0) mmol/L Chloride 102 (101-111) mmol/L Carbon Dioxide 27 (22-32) mmol/L Anion Gap 6 (2-11) mmol/L BUN 10 (6-24) mg/dL Creatinine 0.99 H (0.51-0.95) mg/dL Est GFR ( Amer) 71.5 (>60) Est GFR (Non-Af Amer) 55.6 (>60) BUN/Creatinine Ratio 10.1 (8-20) Glucose 97 (70-100) mg/dL Lactic Acid 1.1 (0.5-2.0) mmol/L Calcium 9.5 (8.6-10.3) mg/dL Total Bilirubin 0.50 (0.2-1.0) mg/dL AST 13 (13-39) U/L ALT 4 L (7-52) U/L Alkaline Phosphatase 94 (34-104) U/L Troponin I 0.01 (<0.04) ng/mL C-Reactive Protein 23.64 H (< 5.00) mg/L Total Protein 7.1 (6.4-8.9) g/dL Albumin 3.7 (3.2-5.2) g/dL Globulin 3.4 (2-4) g/dL Albumin/Globulin Ratio 1.1 (1-3) 12/20/ Range/Units 14:50 WBC (3.5-10.8) 10^3/ul RBC (4.0-5.4) 10^6/ul Hgb (12.0-16.0) g/dl Hct (35-47) % MCV (80-97) fL MCH (27-31) pg MCHC (31-36) g/dl RDW (10.5-15) % Plt Count (150-450) 10^3/ul MPV (7.4-10.4) um3 Neut % (Auto) (38-83) % Lymph % (Auto) (25-47) % Thomas % (Auto) (1-9) % Eos % (Auto) (0-6) % Baso % (Auto) (0-2) % Absolute Neuts (auto) (1.5-7.7) 10^3/ul Absolute Lymphs (auto) (1.0-4.8) 10^3/ul Absolute Monos (auto) (0-0.8) 10^3/ul Absolute Eos (auto) (0-0.6) 10^3/ul Absolute Basos (auto) (0-0.2) 10^3/ul Absolute Nucleated RBC 10^3/ul Nucleated RBC % INR (Anticoag Therapy) 0.94 (0.89-1.11) Sodium (133-145) mmol/L Potassium (3.5-5.0) mmol/L Chloride (101-111) mmol/L Carbon Dioxide (22-32) mmol/L Anion Gap (2-11) mmol/L BUN (6-24) mg/dL Creatinine (0.51-0.95) mg/dL Est GFR ( Amer) (>60) Est GFR (Non-Af Amer) (>60) BUN/Creatinine Ratio (8-20) Glucose (70-100) mg/dL Lactic Acid (0.5-2.0) mmol/L Calcium (8.6-10.3) mg/dL Total Bilirubin (0.2-1.0) mg/dL AST (13-39) U/L ALT (7-52) U/L Alkaline Phosphatase (34-104) U/L Troponin I (<0.04) ng/mL C-Reactive Protein (< 5.00) mg/L Total Protein (6.4-8.9) g/dL Albumin (3.2-5.2) g/dL Globulin (2-4) g/dL Albumin/Globulin Ratio (1-3) Assess/Plan/Problems-Billing Assessment: 71 year old woman who stopped smoking two weeks ago and presents with SOB and found to have COPD exacerbation. - Patient Problems (1) COPD exacerbation Current Visit: Yes Status: Acute Code(s): J44.1 - CHRONIC OBSTRUCTIVE PULMONARY DISEASE W (ACUTE) EXACERBATION SNOMED Code(s): 443853902 Comment: Improved. Will try and wean off supplemental oxygen. Continue nebs, solumedrol and Zithromax (2) Diabetes Current Visit: Yes Status: Acute Code(s): E11.9 - TYPE 2 DIABETES MELLITUS WITHOUT COMPLICATIONS SNOMED Code(s): 32029514 Comment: DC metformin while here. FS with SSI (3) GERD (gastroesophageal reflux disease) Current Visit: Yes Status: Acute Code(s): K21.9 - GASTRO-ESOPHAGEAL REFLUX DISEASE WITHOUT ESOPHAGITIS SNOMED Code(s): 902982940 Comment: Continue PPI. Stable. (4) DVT prophylaxis Current Visit: Yes Status: Acute Code(s): WGA3226 - SNOMED Code(s): 167368584 Comment: Lovenox (5) Full code status Current Visit: Yes Status: Acute Code(s): Z78.9 - OTHER SPECIFIED HEALTH STATUS SNOMED Code(s): 190883823
[2016-12-21] MEDS ORDERED: Dextrose 50% Syringe 50 ML* 25 GM/50 ML SYRINGE IV PUSH PRN (17:46)
[2016-12-21] MEDS ORDERED: metFORMIN* 500 MG TAB PO SCH (18:00)
[2016-12-21] MEDS: Enoxaparin(*) 40 MG/0.4 ML SYR SUBCUT SCH (20:08)
[2016-12-21] MEDS: Benzonatate CAP* 100 MG PO PRN (20:09)
[2016-12-21] MEDS: Omeprazole CAP* 20 MG PO SCH (20:09)
[2016-12-21] MEDS: Montelukast Sodium TAB* 10 MG PO SCH (20:10)
[2016-12-21] MEDS: Cetirizine* 10 MG TAB PO SCH (20:10)
[2016-12-21] MEDS: Insulin LISPRO* 1 UNITS UNIT SUBCUT SCH (21:26)
[2016-12-22] MEDS: Albuterol/Ipratropium NEB.SOL* Albuterol 2.5 MG/Ipratropium 0.5 MG 3 ML INH SCH ×6 (03:26→23:32)
[2016-12-22] MEDS: methylPREDNISolone SOD 40 MG* 1 ML VIAL IV SCH ×3 (03:58→19:36)
[2016-12-22] MEDS: Clotrimazole TROCHE* 10 MG TROCHE PO SCH ×5 (05:52→21:35)
[2016-12-22] MEDS: Azithromycin TAB* 250 MG PO SCH (08:10)
[2016-12-22] MEDS: Insulin LISPRO* 1 UNITS UNIT SUBCUT SCH ×3 (08:11→17:05)
[2016-12-22] MEDS: Benzonatate CAP* 100 MG PO PRN ×2 (10:58→21:35)
--- NOTE | 2016-12-22 15:05 | PN ---
Subjective Date of Service: 12/22/16 Interval History: Patient still gets SOB on minimal exertion. Objective Active Medications: Acetaminophen (Tylenol Tab*) 650 mg PO Q4H PRN PRN Reason: FEVER/PAIN Last Admin: 12/21/16 20:10 Dose: 650 mg Al Hydrox/Mg Hydrox/Simethicone (Maalox Plus*) 30 ml PO Q6H PRN PRN Reason: INDIGESTION Albuterol/Ipratropium (Duoneb (Albuterol 2.5 Mg/Ipratropium 0.5 Mg)) 1 neb INH [id number] AWAKE [facility] Last Admin: 12/22/16 14:52 Dose: 1 neb Azithromycin (Zithromax Tab*) 250 mg PO DAILY HERMELINDA Last Admin: 12/22/16 08:10 Dose: 250 mg Benzonatate (Tessalon Cap*) 200 mg PO TID PRN PRN Reason: COUGH Last Admin: 12/22/16 10:58 Dose: 200 mg Cetirizine HCl (Zyrtec*) 10 mg PO BEDTIME [facility] Last Admin: 12/21/16 20:10 Dose: 10 mg Clotrimazole (Mycelex Garrison*) 10 mg PO FIVE TIMES DAILY [facility] Last Admin: 12/22/16 14:53 Dose: 10 mg Dextrose (D50w Syringe 50 Ml*) 12.5 gm IV PUSH .FOR FS < 60 - SS PRN PRN Reason: FS < 60 Enoxaparin Sodium (Lovenox(*)) 40 mg SUBCUT Q24H [facility] Last Admin: 12/21/16 20:08 Dose: 40 mg Ergocalciferol (Drisdol Cap*) 50,000 unit PO Q7D [facility] Insulin Human Lispro (Humalog*) 0 units SUBCUT AC HERMELINDA PRN Reason: Protocol Methylprednisolone Sodium Succinate (Solu-Medrol 40 Mg) 40 mg IV Q8H [facility] Last Admin: 12/22/16 12:40 Dose: 40 mg Montelukast Sodium (Singulair Tab*) 10 mg PO BEDTIME HERMELINDA Last Admin: 12/21/16 20:10 Dose: 10 mg Omeprazole (Prilosec Cap*) 20 mg PO BEDTIME HERMELINDA Last Admin: 12/21/16 20:09 Dose: 20 mg Temazepam (Restoril Cap*) 15 mg PO BEDTIME PRN PRN Reason: INSOMNIA Last Admin: 12/20/16 22:04 Dose: 15 mg Vital Signs 12/22/16 14:53 Pulse Rate 82 Respiratory 14 Rate O2 Sat by Pulse 96 Oximetry Oxygen Devices in Use Now: Nasal Cannula Appearance: Elderly woman lying in bed in NAD Eyes: No Scleral Icterus Ears/Nose/Mouth/Throat: Clear Oropharnyx Neck: No Thyroid Enlargement, Masses Respiratory: - - Bilateral wheezes Cardiovascular: - - S1S2 sindy Abdominal: NL Sounds; No Tenderness; No Distention, No Hepatosplenomegaly Lymphatic: No Cervical Adenopathy Extremities: No Edema Skin: No Rash or Ulcers Neurological: Alert and Oriented x 3 Result Diagrams: 12/20/16 14:50 12/20/16 14:50 Additional Lab and Data: Lab Results 12/20/16 12/20/16 12/20/16 Range/Units 14:50 14:50 14:50 WBC 6.8 (3.5-10.8) 10^3/ul RBC 4.61 (4.0-5.4) 10^6/ul Hgb 12.7 (12.0-16.0) g/dl Hct 40 (35-47) % MCV 86 (80-97) fL MCH 28 (27-31) pg MCHC 32 (31-36) g/dl RDW 16 H (10.5-15) % Plt Count 222 (150-450) 10^3/ul MPV 9 (7.4-10.4) um3 Neut % (Auto) 60.9 (38-83) % Lymph % (Auto) 23.5 L (25-47) % [place] % (Auto) 11.0 H (1-9) % Eos % (Auto) 4.0 (0-6) % Baso % (Auto) 0.6 (0-2) % Absolute Neuts (auto) 4.1 (1.5-7.7) 10^3/ul Absolute Lymphs (auto) 1.6 (1.0-4.8) 10^3/ul Absolute Monos (auto) 0.7 (0-0.8) 10^3/ul Absolute Eos (auto) 0.3 (0-0.6) 10^3/ul Absolute Basos (auto) 0 (0-0.2) 10^3/ul Absolute Nucleated RBC 0.01 10^3/ul Nucleated RBC % 0.1 INR (Anticoag Therapy) (0.89-1.11) Sodium 135 (133-145) mmol/L Potassium 3.9 (3.5-5.0) mmol/L Chloride 102 (101-111) mmol/L Carbon Dioxide 27 (22-32) mmol/L Anion Gap 6 (2-11) mmol/L BUN 10 (6-24) mg/dL Creatinine 0.99 H (0.51-0.95) mg/dL Est GFR ( Amer) 71.5 (>60) Est GFR (Non-Af Amer) 55.6 (>60) BUN/Creatinine Ratio 10.1 (8-20) Glucose 97 (70-100) mg/dL Lactic Acid 1.1 (0.5-2.0) mmol/L Calcium 9.5 (8.6-10.3) mg/dL Total Bilirubin 0.50 (0.2-1.0) mg/dL AST 13 (13-39) U/L ALT 4 L (7-52) U/L Alkaline Phosphatase 94 (34-104) U/L Troponin I 0.01 (<0.04) ng/mL C-Reactive Protein 23.64 H (< 5.00) mg/L Total Protein 7.1 (6.4-8.9) g/dL Albumin 3.7 (3.2-5.2) g/dL Globulin 3.4 (2-4) g/dL Albumin/Globulin Ratio 1.1 (1-3) 12/20/16 Range/Units 14:50 WBC (3.5-10.8) 10^3/ul RBC (4.0-5.4) 10^6/ul Hgb (12.0-16.0) g/dl Hct (35-47) % MCV (80-97) fL MCH (27-31) pg MCHC (31-36) g/dl RDW (10.5-15) % Plt Count (150-450) 10^3/ul MPV (7.4-10.4) um3 Neut % (Auto) (38-83) % Lymph % (Auto) (25-47) % [place] % (Auto) (1-9) % Eos % (Auto) (0-6) % Baso % (Auto) (0-2) % Absolute Neuts (auto) (1.5-7.7) 10^3/ul Absolute Lymphs (auto) (1.0-4.8) 10^3/ul Absolute Monos (auto) (0-0.8) 10^3/ul Absolute Eos (auto) (0-0.6) 10^3/ul Absolute Basos (auto) (0-0.2) 10^3/ul Absolute Nucleated RBC 10^3/ul Nucleated RBC % INR (Anticoag Therapy) 0.94 (0.89-1.11) Sodium (133-145) mmol/L Potassium (3.5-5.0) mmol/L Chloride (101-111) mmol/L Carbon Dioxide (22-32) mmol/L Anion Gap (2-11) mmol/L BUN (6-24) mg/dL Creatinine (0.51-0.95) mg/dL Est GFR ( Amer) (>60) Est GFR (Non-Af Amer) (>60) BUN/Creatinine Ratio (8-20) Glucose (70-100) mg/dL Lactic Acid (0.5-2.0) mmol/L Calcium (8.6-10.3) mg/dL Total Bilirubin (0.2-1.0) mg/dL AST (13-39) U/L ALT (7-52) U/L Alkaline Phosphatase (34-104) U/L Troponin I (<0.04) ng/mL C-Reactive Protein (< 5.00) mg/L Total Protein (6.4-8.9) g/dL Albumin (3.2-5.2) g/dL Globulin (2-4) g/dL Albumin/Globulin Ratio (1-3) Assess/Plan/Problems-Billing Assessment: 71 year old woman who stopped smoking two weeks ago and presents with SOB and found to have COPD exacerbation. - Patient Problems (1) COPD exacerbation Current Visit: Yes Status: Acute Code(s): J44.1 - CHRONIC OBSTRUCTIVE PULMONARY DISEASE W (ACUTE) EXACERBATION SNOMED Code(s): 910524391 Comment: Still wheezing. Continue nebs, solumedrol and Zithromax Expect her to break and improve in 1 -2 days (2) Diabetes Current Visit: Yes Status: Acute Code(s): E11.9 - TYPE 2 DIABETES MELLITUS WITHOUT COMPLICATIONS SNOMED Code(s): 87204089 Comment: DC metformin while here. FS with SSI (3) GERD (gastroesophageal reflux disease) Current Visit: Yes Status: Acute Code(s): K21.9 - GASTRO-ESOPHAGEAL REFLUX DISEASE WITHOUT ESOPHAGITIS SNOMED Code(s): 127728692 Comment: Continue PPI. Stable. (4) DVT prophylaxis Current Visit: Yes Status: Acute Code(s): NOS2549 - SNOMED Code(s): 215988885 Comment: Lovenox (5) Full code status Current Visit: Yes Status: Acute Code(s): Z78.9 - OTHER SPECIFIED HEALTH STATUS SNOMED Code(s): 922677885
[2016-12-22] MEDS: Enoxaparin(*) 40 MG/0.4 ML SYR SUBCUT SCH (19:36)
[2016-12-22] MEDS: Omeprazole CAP* 20 MG PO SCH (21:36)
[2016-12-22] MEDS: Montelukast Sodium TAB* 10 MG PO SCH (21:36)
[2016-12-22] MEDS: Temazepam CAP* 15 MG PO PRN (21:36)
[2016-12-22] MEDS: Cetirizine* 10 MG TAB PO SCH (21:36)
[2016-12-23] MEDS: Albuterol/Ipratropium NEB.SOL* Albuterol 2.5 MG/Ipratropium 0.5 MG 3 ML INH SCH ×5 (03:29→21:00)
[2016-12-23] MEDS: methylPREDNISolone SOD 40 MG* 1 ML VIAL IV SCH ×2 (04:13→13:11)
[2016-12-23] MEDS: Clotrimazole TROCHE* 10 MG TROCHE PO SCH ×5 (06:26→20:36)
[2016-12-23] MEDS ORDERED: Spiriva Inhaler DEVICE* 1 EACH DEVICE INH SCH (08:00)
[2016-12-23] MEDS ORDERED: Spiriva Inhaler DEVICE* 1 EACH DEVICE SCH (08:00)
[2016-12-23] MEDS: Insulin LISPRO* 1 UNITS UNIT SUBCUT SCH ×3 (08:41→17:08)
[2016-12-23] MEDS: Azithromycin TAB* 250 MG PO SCH (08:44)
[2016-12-23] MEDS: Tiotropium CAP.INH* CAP.INH/18 MCG (USE ORDER SET !) INH SCH (09:44)
[2016-12-23] MEDS: Mometasone/Formoter 200/5 MDI INH SCH ×2 (09:45→21:01)
--- NOTE | 2016-12-23 13:35 | PN ---
Subjective Date of Service: 12/23/16 Interval History: Patient reports some improvement in dyspnea. She is able to make it to the bathroom and back without dyspnea. Still has a productive cough. Objective Active Medications: Acetaminophen (Tylenol Tab*) 650 mg PO Q4H PRN PRN Reason: FEVER/PAIN Last Admin: 12/21/16 20:10 Dose: 650 mg Al Hydrox/Mg Hydrox/Simethicone (Maalox Plus*) 30 ml PO Q6H PRN PRN Reason: INDIGESTION Albuterol/Ipratropium (Duoneb (Albuterol 2.5 Mg/Ipratropium 0.5 Mg)) 1 neb INH [id number] AWAKE [facility] Last Admin: 12/23/16 11:25 Dose: 1 neb Azithromycin (Zithromax Tab*) 250 mg PO DAILY [facility] Last Admin: 12/23/16 08:44 Dose: 250 mg Benzonatate (Tessalon Cap*) 200 mg PO TID PRN PRN Reason: COUGH Last Admin: 12/22/16 21:35 Dose: 200 mg Cetirizine HCl (Zyrtec*) 10 mg PO BEDTIME [facility] Last Admin: 12/22/16 21:36 Dose: 10 mg Clotrimazole (Mycelex Garrison*) 10 mg PO FIVE TIMES DAILY [facility] Last Admin: 12/23/16 13:11 Dose: 10 mg Device (Tiotropium Inhaler Device*) 1 each .SEE ORDER .USE w/ SPIRIVA CAPS [facility] Dextrose (D50w Syringe 50 Ml*) 12.5 gm IV PUSH .FOR FS < 60 - SS PRN PRN Reason: FS < 60 Enoxaparin Sodium (Lovenox(*)) 40 mg SUBCUT Q24H [facility] Last Admin: 12/22/16 19:36 Dose: 40 mg Ergocalciferol (Drisdol Cap*) 50,000 unit PO Q7D [facility] Insulin Human Lispro (Humalog*) 0 units SUBCUT AC [facility] PRN Reason: Protocol Last Admin: 12/23/16 13:09 Dose: Not Given Mometasone Furoate/Formoterol Fumar (Dulera 200/5 Mdi*) 2 puff INH BID [facility] Last Admin: 12/23/16 09:45 Dose: 2 puff Montelukast Sodium (Singulair Tab*) 10 mg PO BEDTIME HERMELINDA Last Admin: 12/22/16 21:36 Dose: 10 mg Omeprazole (Prilosec Cap*) 20 mg PO BEDTIME HERMELINDA Last Admin: 12/22/16 21:36 Dose: 20 mg Temazepam (Restoril Cap*) 15 mg PO BEDTIME PRN PRN Reason: INSOMNIA Last Admin: 12/22/16 21:36 Dose: 15 mg Tiotropium Flushing (Spiriva Cap.Inh*) 1 cap INH DAILY [facility] Last Admin: 12/23/16 09:44 Dose: 1 cap Vital Signs: Temp Pulse Resp BP Pulse Ox 97.4 F 73 18 135/80 94 12/23/16 04:08 12/23/16 11:43 12/23/16 11:43 12/23/16 06:03 12/23/16 11:43 Oxygen Devices in Use Now: Nasal Cannula Appearance: Overall well appearing female in NAD eating lunch. Occasional productive cough. Respiratory: Symmetrical Chest Expansion and Respiratory Effort, - - diffuse wheezing and rhonchi Cardiovascular: NL Sounds; No Murmurs; No JVD, RRR Abdominal: NL Sounds; No Tenderness; No Distention Extremities: No Edema Skin: No Rash or Ulcers Neurological: Alert and Oriented x 3 Result Diagrams: 12/20/16 14:50 12/20/16 14:50 Additional Lab and Data: . Assess/Plan/Problems-Billing Assessment: 71 year old woman who stopped smoking two weeks ago and presents with SOB and found to have COPD exacerbation. - Patient Problems (1) COPD exacerbation Comment: Wheezing on exam but improved dyspnea and good oxygenation at rest Cont inhaled therapies Transition from IV to po steroids (2) Diabetes Comment: Hold metformin Cover hyperglycemia with SS Humalog (3) GERD (gastroesophageal reflux disease) Comment: Continue PPI. Stable. (4) DVT prophylaxis Comment: Lovenox (5) Full code status Status and Disposition: Inpatient. Possible dc home tomorrow. Will assess need for home O2 prior to dc
[2016-12-23] MEDS: Enoxaparin(*) 40 MG/0.4 ML SYR SUBCUT SCH (20:36)
[2016-12-23] MEDS: Cetirizine* 10 MG TAB PO SCH (20:36)
[2016-12-23] MEDS: Omeprazole CAP* 20 MG PO SCH (20:36)
[2016-12-23] MEDS: Montelukast Sodium TAB* 10 MG PO SCH (20:36)
[2016-12-24] MEDS: Albuterol/Ipratropium NEB.SOL* Albuterol 2.5 MG/Ipratropium 0.5 MG 3 ML INH SCH ×3 (04:07→08:20)
[2016-12-24] MEDS: Clotrimazole TROCHE* 10 MG TROCHE PO SCH ×2 (05:35→09:49)
[2016-12-24] MEDS: Insulin LISPRO* 1 UNITS UNIT SUBCUT SCH ×2 (08:11→11:47)
[2016-12-24] MEDS: Azithromycin TAB* 250 MG PO SCH (08:14)
[2016-12-24] MEDS: Tiotropium CAP.INH* CAP.INH/18 MCG (USE ORDER SET !) INH SCH (08:25)
[2016-12-24] MEDS: Mometasone/Formoter 200/5 MDI INH SCH (08:25)
[2016-12-24] MEDS ORDERED: Ergocalciferol CAP* 50000 UNIT PO SCH (09:00)
[2016-12-24 11:49] VITALS: BP 120/82
--- NOTE | 2016-12-25 07:52 | DS ---
CC: Priyanka Townsend NP * DISCHARGE SUMMARY: DATE OF ADMISSION: 12/20/16 DATE OF DISCHARGE: 12/24/16 PRIMARY CARE PROVIDER: Priyanka Townsend NP DISCHARGING PROVIDER: BREEZY Kahn. SUPERVISING PHYSICIAN: Dr. Barbra Ribera * (DICTATED BY BREEZY KAHN) PRIMARY DISCHARGE DIAGNOSES: 1. Chronic obstructive pulmonary exacerbation. 2. Continued tobacco abuse. SECONDARY DISCHARGE DIAGNOSES: 1. Non-insulin dependent diabetes. 2. Gastroesophageal reflux disease. DISCHARGE MEDICATIONS: 1. Albuterol inhaler one puff inhale q.6 hours as needed for shortness of breath. 2. DuoNeb one neb inhale q.4 hours as needed for shortness of breath. 3. Clotrimazole lulú 10 mg p.o. five times daily. 4. Ergocalciferol 32438 units p.o. weekly. 5. Advair 500/50 one puff inhale twice daily. 6. Loratadine 10 mg p.o. at bedtime. 7. Singulair 10 mg p.o. at bedtime. 8. Protonix 40 mg p.o. at bedtime. 9. Zantac 150 mg p.o. daily as needed for reflux. 10. Daliresp 500 mcg p.o. daily. 11. Spiriva 18 mcg inhale daily. 12. Metformin 500 mg p.o. daily. 13. Prednisone on a tapering schedule including 40 mg x 3 days followed by 20 mg x 3 days, followed by 10 mg x 3 days. MEDICATION CHANGES: Prednisone taper as outlined above. HOSPITAL IMAGIN. Chest x-ray shows a fullness in the right hilum with an ill-defined nodular density at the right lower lung, I am recommending further evaluation with a CT. 2. CT of the chest shows scattered areas of linear parenchymal change and nodularity stable in the right chest, but mildly progressive in the left chest and inflammatory process with scarring is featured most likely, recommend followup CT in 3 months. HOSPITAL COURSE: This is a 71-year-old female with [id number] COPD as well as non-insulin dependent diabetes and continued smoking habit who presents to the emergency department with complaints of shortness of breath, productive cough, and subjective fevers for approximately one week prior to admission. She was noted to have oxygen saturation approximately of 92% at the time of admission which took respiratory rates up to 24 breath per minute. She had wheezing and rhonchi appreciated on lung exam. Chest x-ray and followup CT did not demonstrate an acute infiltrate. The patient did given history of being around family members who had recently been sick with viral type illnesses. The patient was subsequently admitted for treatment of COPD exacerbation and acute bronchitis. She was started on IV corticosteroids, continued on her home inhaled medication and given regular DuoNeb as well as azithromycin. The patient's feelings of dyspnea slowly improved throughout her hospitalization stay. She remained afebrile. She continued to have some wheezing and rhonchi, although severity improved as her time in the hospital did. She initially required supplemental oxygen at approximately 3.5 L via nasal cannula to maintain saturations in the mid 90s or so. Oxygen was titrated off and she was able to maintain saturations in the mid upper 90s on room air at rest, in mid to low 90s with ambulation at the time of discharge. DISPOSITION AND FOLLOWUP PLAN: The patient is being discharged to home. Patient completed azithromycin therapy during the hospital stay but does require additional steroids at a tapering dose as outlined above. She was instructed to continue her inhaled medications. She is on appropriate maximum inhale therapy at home, but it is interested in potentially switching from Advair to Daliresp, which was easier to use and we will plan to talk to her primary care provider about initiating a prior authorization for this. The patient otherwise received instructions to continue all home medications and prednisone as prescribed as well as regular DuoNebs for the next several days. She did not require additional supplemental O2 at this time, but does utilize it at home at night. The patient was encouraged to quit smoking during her hospital stay, which she was reluctant to do. We recommend that she continue to follow up with her primary care provider regarding this. BREEZY KAHN [id number]/[facility] #: [id number] ADDIS
== END 2016-12-24 12:45 | disposition home or self-care (01) | DRG 191 ==
LOC: ED 13:35 → MED 18:31 → OBSVTOIN 12-22 12:00 → INTOOBSV 12-22 12:54
PROVIDERS: ADMIT Hospitalist; ATTEND Internal Medicine
DX: J44.1 Chronic obstructive pulmonary disease with (acute) exacerbation (principal); J96.11 Chronic respiratory failure with hypoxia; E11.51 Type 2 diabetes mellitus with diabetic peripheral angiopathy without gangrene; E11.65 Type 2 diabetes mellitus with hyperglycemia; E11.36 Type 2 diabetes mellitus with diabetic cataract; K21.9 Gastro-esophageal reflux disease without esophagitis; Z79.84 Long term (current) use of oral hypoglycemic drugs; F17.210 Nicotine dependence, cigarettes, uncomplicated; Z77.090 Contact with and (suspected) exposure to asbestos; J20.9 Acute bronchitis, unspecified; J44.0 Chronic obstructive pulmonary disease with (acute) lower respiratory infection; Z87.01 Personal history of pneumonia (recurrent); Z88.2 Allergy status to sulfonamides; Z88.0 Allergy status to penicillin; Z91.040 Latex allergy status; Z88.8 Allergy status to other drugs, medicaments and biological substances; Z86.711 Personal history of pulmonary embolism; K44.9 Diaphragmatic hernia without obstruction or gangrene; G43.909 Migraine, unspecified, not intractable, without status migrainosus; F32.9 Major depressive disorder, single episode, unspecified; F43.10 Post-traumatic stress disorder, unspecified; Z86.14 Personal history of Methicillin resistant Staphylococcus aureus infection; Z82.49 Family history of ischemic heart disease and other diseases of the circulatory system; Z83.3 Family history of diabetes mellitus; Z80.9 Family history of malignant neoplasm, unspecified
CPT/HCPCS: 36415; 71010; 71260; 80053; 83605; 84484; 85025; 85610; 86140; 87641; 93005; 94640; 94760; 94761; 99406; A9270-GY; G0378; J1170; J1650; J2405; J2920; J2930; Q9967

== ENCOUNTER 2017-05-19 19:33 | Inpatient (IN) | payer MEDICARE, MEDICAID ==
[2017-05-19] MEDS ORDERED: Acetaminophen TAB* 325 MG PO ONE (19:58)
[2017-05-19] MEDS ORDERED: Magnesium Sulfate 2 GM IV* 2 GM/50 ML BAG IVPB ONE (19:58)
[2017-05-19] MEDS ORDERED: methylPREDNISolone 125 MG* 2 ML VIAL IV ONE (19:58)
[2017-05-19] MEDS ORDERED: Albuterol/Ipratropium NEB.SOL* Albuterol 2.5 MG/Ipratropium 0.5 MG 3 ML INH ONE (20:02)
[2017-05-19] MEDS ORDERED: Azithromycin IV(*) 500 MG in NS 0.9% 250 ML* 250 ML IVPB ONE (20:04)
[2017-05-19] MEDS: Albuterol 2.5 MG/3 ML NEB.SOL* (0.083%) INH SCH ×2 (20:15→20:35)
[2017-05-19] MEDS: NS 0.9% 1000 ML* 2,000 ML IV ONE ×2 (20:26→21:55)
[2017-05-19] MEDS ORDERED: Ondansetron INJ* 2 MG/ML VIAL IV ONE (20:35)
[2017-05-19 20:49] LABS: INR 0.99 (0.77-1.02)
[2017-05-19 20:51] LABS: EGFR Non-African American 55.6 (>60)
--- NOTE | 2017-05-19 20:57 | RAD ---
INDICATION: Difficulty breathing COMPARISON: Chest x-ray dated December 20, 2016 TECHNIQUE: Single AP portable view of the chest was obtained. FINDINGS: Image quality is compromised due to the relative inferiority of a portable chest x-ray. There is a very mild degree of cardiomegaly relative to the previous chest x-ray. The pulmonary vasculature appears to be mildly engorged and indistinct. There are pleural-based linear densities at the mid-level bilateral lungs. There is questionable faint costophrenic angle blunting bilaterally. Visualized bones are normal for the patient's age. IMPRESSION: In the correct clinical setting chest x-ray findings could be compatible with mild cardiogenic pulmonary edema.
[2017-05-19 21:13] LABS: Hematocrit 39 % (35-47); Hemoglobin 13.1 g/dl (12.0-16.0); Mean Corpuscular HGB Conc 33 g/dl (31-36); Mean Corpuscular Hemoglobin 28 pg (27-31); Mean Corpuscular Volume 83 fL (80-97); Mean Platelet Volume 9 um3 (7.4-10.4); Platelet Count 254 10^3/ul (150-450); Red Blood Count 4.76 10^6/ul (4.0-5.4); Red Cell Distribution Width 16 % (10.5-15); White Blood Count 11.3 10^3/ul (3.5-10.8)
[2017-05-19 21:15] LABS: ABS Basophils 0 10^3/ul (0-0.2); ABS Eosinophils 0 10^3/ul (0-0.6); ABS Lymphocytes 0.7 10^3/ul (1.0-4.8); ABS Monocytes 0.4 10^3/ul (0-0.8); ABS Neutrophils 10.6 10^3/ul (1.5-7.7); ABS Nucleated RBC 0 10^3/ul; Eosinophil % 0 % (0-6); Lymphocyte % 6.3 % (25-47); Nucleated Red Blood Cells % 0.1
[2017-05-19] MEDS ORDERED: NS 0.9% 1000 ML* 1,000 ML IV ONE ×3 (21:54→23:23)
[2017-05-19] MEDS ORDERED: Clindamycin 900 MG IVPREMIX(* 900 MG/50 ML SDV IV ONE (21:54)
--- NOTE | 2017-05-19 22:16 | ED ---
Shabbir Interiano Thomas, scribed for Lamont Larios MD on 05/19/17 at 2010 . Shortness of Breath - HPI Summary HPI Summary: The patient is a 71 year old female with a history of COPD complaining of shortness of breath for the last two days. She is 2 liters of oxygen NC. She has a cough and feels feverish. She used her nebulizer treatment at home. She last smoked two weeks ago. - History of Current Complaint Chief Complaint: EDShortnessOfBreath Time Seen by Provider: 05/19/17 19:43 Hx Obtained From: Patient Onset/Duration: Lasting Days - 2, Still Present Timing: Constant Current Severity: Moderate Dyspnea At: Rest Aggrevating Factors: Nothing Alleviating Factors: Oxygen Associated Signs & Symptoms: Cough (Nonproductive), Fever Related History: Obesity - Allergy/Home Medications Allergies/Adverse Reactions: Allergies Allergy/AdvReac Type Severity Reaction Status Date / Time MS Ketorolac Tromethamine Allergy Severe Anaphylatic Verified 06/11/16 12:28 [From Toradol] Shock MS Latex [Latex] Allergy Severe Anaphylatic Verified 06/11/16 12:28 Shock MS Aspirin [Aspirin] Allergy Intermediate Anxiety Verified 06/11/16 12:28 MS Levofloxacin Allergy Intermediate Vomiting Verified 06/11/16 12:28 [From Levaquin] MS Penicillins [Penicillins] Allergy Intermediate Hives Verified 06/11/16 12:28 MS Sulfa Drugs [Sulfa Drugs] Allergy Intermediate Hives Verified 06/11/16 12:28 MS Ceftriaxone [Ceftriaxone] Allergy Mild Hives Verified 06/11/16 12:28 MS Ibuprofen [Ibuprofen] AdvReac Intermediate Abdominal Verified 06/11/16 12:28 Pain PMH/Surg Hx/FS Hx/Imm Hx Endocrine/Hematology History: Reports: Hx Blood Transfusions, Hx Diabetes Denies: Hx Systemic Lupus Erythematosus, Hx Thyroid Disease Cardiovascular History: Reports: Hx Peripheral Vascular Disease, Hx Syncope Denies: Hx Congestive Heart Failure, Hx Hypertension Respiratory History: Reports: Hx Asthma, Hx Chronic Bronchitis, Hx Chronic Obstructive Pulmonary Disease (COPD), Hx Pneumonia, Hx Pulmonary Embolism, Other Respiratory Problems/Disorders - COPD GI History: Reports: Hx Gastroesophageal Reflux Disease, Hx Hiatal Hernia Denies: Hx Gastrointestinal Bleed, Hx Ulcer History: Denies: Hx Dialysis, Hx Renal Disease Musculoskeletal History: Reports: Hx Back Problems Denies: Hx Arthritis, Hx Rheumatoid Arthritis Sensory History: Reports: Hx Cataracts, Hx Contacts or Glasses Denies: Hx Hearing Aid Opthamlomology History: Reports: Hx Cataracts, Hx Contacts or Glasses Neurological History: Reports: Hx Migraine Psychiatric History: Reports: Hx Depression, Hx Post Traumatic Stress Disorder, Other Psychiatric Issues/Disorders - on "nerve pills" prior. Family concerned about depression. 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 Denies: Hx Clostridium Difficile, Hx Hepatitis, Hx Human Immunodeficiency Virus (HIV), Hx Shingles, Hx Tuberculosis, Hx Known/Suspected VRE, Hx Known/ Suspected VRSA, History Other Infectious Disease, Traveled Outside the [place] in Last 30 Days - Family History Known Family History: Positive: Cardiac Disease, Diabetes, Respiratory Disease, Other - cancer, kidney failure - Social History Alcohol Use: None Substance Use Type: Reports: None Hx Tobacco Use: Yes Smoking Status (MU): Heavy Every Day Tobacco Smoker Type: Cigarettes Amount Used/How Often: 1/2 PPD Review of Systems Positive: Fever Positive: Shortness Of Breath, Cough All Other Systems Reviewed And Are Negative: Yes Physical Exam - Summary Physical Exam Summary: VITAL SIGNS: Reviewed. GENERAL: Patient is a well-developed and nourished FEMALE who is lying comfortable in the stretcher. Patient is not in any acute respiratory distress. HEAD AND FACE: No signs of trauma. No ecchy mosis, hematomas or skull depressions. No sinus tenderness. EYES: PERRLA, EOMI x 2, No injected conjunctiva, no nystagmus. EARS: Hearing grossly intact. Ear canals and tympanic membranes are within normal limits. MOUTH: Oropharynx within normal limits. NECK: Supple, trachea is midline, no adenopathy, no JVD, no carotid bruit, no c- spine tenderness, neck with full ROM. CHEST: Symmetric, no tenderness at palpation LUNGS: Decreased breath sounds. Diffuse wheezing in and out. CVS: Regular rate and rhythm, S1 and S2 present, no murmurs or gallops appreciated. ABDOMEN: Soft, non-tender. No signs of distention. No rebound no guarding, and no masses palpated. Bowel sounds are normal. EXTREMITIES: FROM in all major joints, no edema, no cyanosis or clubbing. NEURO: Alert and oriented x 3. No acute neurological deficits. Speech is normal and follows commands. SKIN: Dry and warm Triage Information Reviewed: Yes Vital Signs On Initial Exam: Initial Vitals Temp Pulse Resp BP Pulse Ox 100.1 F 101 37 125/81 90 05/19/17 19:35 05/19/17 19:35 05/19/17 19:35 05/19/17 19:35 05/19/17 19:35 Vital Signs Reviewed: Yes Diagnostics - Vital Signs Vital Signs Temp Pulse Resp BP Pulse Ox 05/19/17 19:35 100.1 F 101 37 125/81 90 - Laboratory Result Diagrams: 05/19/17 20:20 05/19/17 20:20 Lab Statement: Any lab studies that have been ordered have been reviewed, and results considered in the medical decision making process. - Radiology CXR Xray Interpretation: No Acute Changes - In the correct clinical setting chest x- ray findings could be compatible with mild cardiogenic pulmonary edema. Dr. Larios has reviewed this report. Radiology Interpretation Completed By: Radiologist - EKG 20:28 Cardiac Rate: NL EKG Rhythm: Sinus Rhythm - at 99 BPM EKG Interpretation: Normal intervals, normal axis, no ischemic change. Course/Dx - Course Assessment/Plan: The patient is a 71 year old female with shortness of breath for the last two days, fever, and a cough. In the ED she was given acetaminophen , Duo-Neb, SoluMedrol, IV fluids, Magnesium sulfate, and Zithromax. CXR shows In the correct clinical setting chest x-ray findings could be compatible with mild cardiogenic pulmonary edema. EKG was obtained. The patient is admitted to Dr. Wagoner. - Diagnoses Provider Diagnoses: COPD (chronic obstructive pulmonary disease), Bronchitis - Physician Notifications Discussed Care of Patient With: Lilliam Wagoner Time Discussed With Above Provider: 22:00 Instructed by Provider To: Admit As Inpatient Discharge - Discharge Plan Condition: Stable Disposition: ADMITTED TO [facility] Referrals: Kristian DACOSTA FURNACE CARETAKER,Priyanka [Primary Care Provider] - The documentation as recorded by the Shabbir asif Thomas accurately reflects the service I personally performed and the decisions made by , Lamont Larios MD.
[2017-05-19] MEDS ORDERED: Al Hydrox/Mg Hydrox/Simet LIQ* 30 ML UDC PO PRN (22:24)
[2017-05-19] MEDS ORDERED: Senna TAB PO PRN (22:24)
[2017-05-19] MEDS ORDERED: Ondansetron INJ* 2 MG/ML VIAL IV PRN (22:24)
[2017-05-19] MEDS ORDERED: Docusate CAP* 100 MG PO PRN (22:24)
[2017-05-19] MEDS ORDERED: Cetirizine* 10 MG TAB PO PRN (22:28)
[2017-05-19] MEDS ORDERED: Dextrose 50% Syringe 50 ML* 25 GM/50 ML SYRINGE IV PUSH PRN (22:30)
[2017-05-19] MEDS ORDERED: cefTRIAXone(*) 1 GM in NS 0.9% 50 ML* 50 ML IVPB ONE (22:48)
[2017-05-20] MEDS: NS 0.9% 1000 ML* 1,000 ML IV SCH ×3 (00:28→13:57)
--- NOTE | 2017-05-20 00:45 | HP ---
CC: [facility] * HISTORY AND PHYSICAL: DATE OF ADMISSION: 05/19/17 TIME OF EVALUATION: 2200. PRIMARY CARE PHYSICIAN: [facility]. CHIEF COMPLAINT: Shortness of breath. HISTORY OF PRESENT ILLNESS: This is a 71-year-old female with a past medical history of COPD, on home oxygen, who presents to the emergency room with worsening shortness of breath. The patient states about 2 weeks ago, she went to go see her primary care physician for shortness of breath. They prescribed her Z-Abundio and prednisone. She states she is not sure if she got any better; however, over the past few days, her shortness of breath has gotten significantly worse where she is short of breath at rest. She thinks she does have some chest discomfort, but not entirely clear. She has had terrible nausea , not able to vomit, decreased appetite, no abdominal pain. She has had some dysuria as well. She does state she has a productive cough and has had fevers and chills for the past few days. She has never seen a sweatband decorating machine operator in the past. She has had issues with her insurance of getting certain inhalers prescribed due to lack of insurance coverage. Otherwise, review of systems is negative in the emergency room. The patient had labs and imaging. She was given clindamycin and azithromycin, given a DuoNeb, albuterol neb, Tylenol, magnesium 2 g, methylprednisolone 125 mg and Zofran 8 mg. She got a liter of fluid and then started becoming hypotensive and was given another 2 L of fluid and referred to the hospitalist service for further evaluation. PAST MEDICAL HISTORY: 1. COPD, on home oxygen. 2. Tobacco use. 3. Diabetes. 4. GERD. MEDICATIONS: 1. Albuterol 1 to 2 puffs every 4 hours as needed for shortness of breath. 2. DuoNeb q.4 hours as needed. 3. Clotrimazole lulú 10 mg p.o. 5 times a day. 4. Ergocalciferol 500 units p.o. weekly. 5. Dulera 2 puffs inhaled b.i.d. 6. Loratadine 10 mg p.o. at bedtime. 7. Singulair 10 mg p.o. at bedtime. 8. Protonix 40 mg p.o. at bedtime. 9. Zantac 150 mg daily as needed for reflux. 10. Daliresp 500 mcg p.o. daily. 11. Spiriva 18 mcg daily. 12. Metformin 500 mg p.o. daily. ALLERGIES: TORADOL, LATEX, ASPIRIN, LEVOFLOXACIN, PENICILLIN, SULFA DRUGS, CEFTRIAXONE, IBUPROFEN. When asked specifically about her allergies to antibiotics, she cannot recall any specifics of having any allergies to antibiotics. SOCIAL HISTORY: The patient lives with her daughter and her son-in-law and her 2 grandsons. She is independent of her ADLs. 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 She states she stopped smoking about 2 or 3 weeks ago because she was feeling so unwell. No alcohol use. No illicit drug use. She is a full code. FAMILY HISTORY: Mother from CKD. Father from cancer. REVIEW OF SYSTEMS: A 14-point review of systems is as mentioned in the HPI, otherwise negative. PHYSICAL EXAMINATION GENERAL: Frail, moderately ill-appearing, in no acute distress. VITAL SIGNS: Temp 100.1, pulse rate 92, respiratory rate 22, oxygen saturation 94% on 3 L, blood pressure 91/48. HEENT: Head normocephalic. Pupils equal and reactive, anicteric. Oropharynx: Mucous membranes dry. No white patches appreciated. NECK: Supple. No lymphadenopathy. RESPIRATORY: Poor aeration. Minimal breath sounds. No increased work of breathing. Bilateral rhonchi and expiratory wheezing heard. CARDIAC: Regular rate and rhythm. Soft systolic murmur heard throughout. ABDOMEN: Soft, nontender, nondistended. EXTREMITIES: No clubbing, cyanosis, or edema. +1 DPs. NEUROLOGIC: Alert and oriented x3. No focal neurological deficits. DIAGNOSTIC STUDIES/LAB DATA: White count 11.3, hemoglobin 13.1, hematocrit 39 , platelets 254. INR is 0.99. Sodium 123, potassium 4.0, chloride 88, bicarb 27, BUN 18, creatinine 0.99. CRP is 96.94. BNP is 152. Influenza is negative. RADIOGRAPHIC DATA: Chest x-ray shows in the correct clinical setting, chest x- ray findings could be compatible with mild cardiogenic pulmonary edema. EKG shows normal sinus. ASSESSMENT: This is a 71-year-old female with past medical history of chronic obstructive lung disease, on oxygen and tobacco use, who presents to the emergency room with worsening dyspnea on exertion, found to be hypotensive. Shortness of breath. Assessment: The patient's findings are most consistent with the chronic obstructive lung disease exacerbation most likely secondary to a viral illness; however, with her white count and her hypotension concerning for sepsis, we will treat her empirically with antibiotics for now. Plan: We will admit her to the ICU for her persistent hypotension, continue to fluid resuscitate her. We will give her ceftriaxone, continue azithromycin, continue on her prednisone and inhaler regimen, incentive spirometer. The patient has never seen a sweatband decorating machine operator. I think it is worthwhile consulting them and getting her established. I am worried that she has end-stage chronic obstructive lung disease. I think further imaging is warranted if her symptoms do not improve over the next 24 hours. We will also check her troponin as well and follow up on her UA considering her symptoms of dysuria. CHRONIC MEDICAL PROBLEMS: 1. COPD as above. 2. Tobacco use. The patient has not smoked in the past 2 to 3 weeks. 3. Diabetes. We will place her on lispro sliding scale. 4. GERD. We will place her on omeprazole and place her on Protonix. 5. FEN. Place her on a diabetic diet with IV fluids. 6. DVT prophylaxis. The patient scores high risk. Place her on heparin subcu t.i.d. 7. Code status is full code. TIME SPENT: Greater than 60 minutes spent doing the history and physical, more than half the time spent in direct patient contact. [id number]/CPS #: [id number] MTDD
--- NOTE | 2017-05-20 00:46 | PN ---
Progress Note - Progress Note Date of Service: 05/20/17 Note: Patient remains hypotensive despite 4L NS - will start levophed and broaden her antibiotics. Once more stabilized will obtain chest CT. Will discuss with Dr. Hardwick as well.
[2017-05-20] MEDS: NS 0.9% 250 ML* 246 ML with Norepinephrine VIAL* 4 MG IV SCH ×8 (00:49→19:41)
[2017-05-20] MEDS ORDERED: Vancomycin(*) 1,500 MG in NS 0.9% 250 ML* 250 ML IVPB ONE (01:00)
[2017-05-20] MEDS ORDERED: Norepinephrine 16MCG/ML IVPRE* 4,000 MCG/250 ML BAG IV SCH (01:00)
[2017-05-20] MEDS: Mometasone/Formoter 200/5 MDI INH SCH ×3 (01:02→20:23)
[2017-05-20] MEDS: Cefepime 2 GM in Dextrose(*) 2 GM/50 ML BAG IV SCH ×2 (03:21→15:36)
[2017-05-20] MEDS: Montelukast Sodium TAB* 10 MG PO SCH ×2 (03:27→20:20)
[2017-05-20] MEDS: Albuterol 2.5 MG/3 ML NEB.SOL* (0.083%) INH PRN ×2 (04:02→20:24)
[2017-05-20 05:27] LABS: ABS Basophils 0 10^3/ul (0-0.2); ABS Eosinophils 0 10^3/ul (0-0.6); ABS Lymphocytes 0.3 10^3/ul (1.0-4.8); ABS Monocytes 0.2 10^3/ul (0-0.8); ABS Nucleated RBC 0 10^3/ul; Eosinophil % 0 % (0-6); Hematocrit 37 % (35-47); Hemoglobin 12.1 g/dl (12.0-16.0); Mean Corpuscular HGB Conc 33 g/dl (31-36); Mean Corpuscular Hemoglobin 27 pg (27-31); Mean Corpuscular Volume 84 fL (80-97); Mean Platelet Volume 9 um3 (7.4-10.4); Nucleated Red Blood Cells % 0; Platelet Count 236 10^3/ul (150-450); Red Blood Count 4.44 10^6/ul (4.0-5.4); Red Cell Distribution Width 16 % (10.5-15); White Blood Count 11.6 10^3/ul (3.5-10.8)
[2017-05-20] MEDS: Heparin VIAL(*) 5000 UNITS/ML VIAL (FIVE THOUSAND) SUBCUT SCH ×3 (05:31→21:43)
[2017-05-20] MEDS: Omeprazole CAP* 20 MG PO SCH (05:31)
[2017-05-20 05:42] LABS: EGFR Non-African American 62.1 (>60)
[2017-05-20] MEDS: Tiotropium CAP.INH* CAP.INH/18 MCG (USE ORDER SET !) INH SCH (08:00)
[2017-05-20] MEDS ORDERED: Spiriva Inhaler DEVICE* 1 EACH DEVICE INH ONE (09:00)
[2017-05-20] MEDS: Insulin LISPRO* 1 UNITS UNIT SUBCUT SCH ×3 (09:52→17:54)
[2017-05-20] MEDS: predniSONE TAB* 20 MG PO SCH (09:53)
[2017-05-20] MEDS: Clotrimazole TROCHE* 10 MG TROCHE PO SCH ×4 (09:53→21:43)
--- NOTE | 2017-05-20 10:10 | PN ---
Progress Note - Progress Note Date of Service: 05/20/17 Note: CCM Progress Note Discussed with Dr dover last PM Patient off Levophed Sitting up eating breakfast Feels better Nausea almost all gone Good spirits Patient reports 2 grandsons with whom she lives were ill with "the flu" Does not currently have a primary care provider as an outpatient Reports she regularly relapses and resumes smoking...she was intolerant of Chantix and has allergy to patches. Patient herself brings up hypnotism Counselled her re importance of smoking cessation SBP 90-115 HR 72 RR 15 SpO2 92(NC) Skin no diaphoresis, no cyanosis Sclerae anicteric, pupils equal Oral mucosa pink Neck supple Lungs with fine wheeze Lt lower Cor RRR no rub, no murmur Abd soft, obese, active, nontender Ext no cord, no calf tenderness, no edema WBC 11.6 Hgb 12.1 Plt 236 Na 131 K 4.0 BUN/creat 16/0.9 Trops 0.02; 0.01 BNP 152 IMP: Exacerbation COPD....improved Hypotension ...resolved Hyponatremia...better Hx DM PLAN: Decrease IVF to 75 ml/hr Continue Bronchodilator inhaler therapy Continue steroids Continue Abx DVT prophyl PO diet Mobilize as tolerated Can probably transfer out of ICU today T>30 min, CCM services rendered
[2017-05-20] MEDS: Vancomycin(*) 1,250 MG in NS 0.9% 250 ML* 250 ML IVPB SCH (13:58)
[2017-05-20] MEDS: ROFLUMILAST 500 MCG PO SCH (14:04)
[2017-05-20] MEDS: Azithromycin IV(*) 250 MG in NS 0.9% 250 ML* 250 ML IVPB SCH (20:19)
[2017-05-20] MEDS ORDERED: Azithromycin IV(*) 250 MG in NS 0.9% 250 ML* 250 ML IVPB SCH (23:00)
[2017-05-20] MEDS ORDERED: cefTRIAXone(*) 1 GM in NS 0.9% 50 ML* 50 ML IVPB SCH (23:00)
[2017-05-21] MEDS: Vancomycin(*) 1,250 MG in NS 0.9% 250 ML* 250 ML IVPB SCH ×2 (01:49→17:08)
[2017-05-21] MEDS: Albuterol 2.5 MG/3 ML NEB.SOL* (0.083%) INH PRN ×3 (02:54→23:58)
[2017-05-21] MEDS: Acetaminophen TAB* 325 MG PO PRN ×3 (03:30→21:58)
[2017-05-21] MEDS: Cefepime 2 GM in Dextrose(*) 2 GM/50 ML BAG IV SCH ×2 (03:31→14:51)
[2017-05-21] MEDS: Heparin VIAL(*) 5000 UNITS/ML VIAL (FIVE THOUSAND) SUBCUT SCH ×3 (06:05→21:40)
[2017-05-21] MEDS: Omeprazole CAP* 20 MG PO SCH (06:06)
[2017-05-21 06:32] LABS: EGFR Non-African American 56.9 (>60)
[2017-05-21] MEDS: Mometasone/Formoter 200/5 MDI INH SCH ×2 (07:52→19:50)
[2017-05-21] MEDS: Tiotropium CAP.INH* CAP.INH/18 MCG (USE ORDER SET !) INH SCH (07:52)
[2017-05-21] MEDS: Albuterol/Ipratropium NEB.SOL* Albuterol 2.5 MG/Ipratropium 0.5 MG 3 ML INH PRN (07:52)
[2017-05-21] MEDS ORDERED: metFORMIN* 500 MG TAB PO SCH (09:00)
[2017-05-21] MEDS: predniSONE TAB* 20 MG PO SCH (09:29)
[2017-05-21] MEDS: NS 0.9% 1000 ML* 1,000 ML IV SCH (09:29)
[2017-05-21] MEDS: Clotrimazole TROCHE* 10 MG TROCHE PO SCH ×4 (09:30→21:39)
[2017-05-21] MEDS: Insulin LISPRO* 1 UNITS UNIT SUBCUT SCH ×4 (09:30→21:39)
[2017-05-21] MEDS: ROFLUMILAST 500 MCG PO SCH (09:35)
[2017-05-21] MEDS ORDERED: Vancomycin Trough Check NOTE FOLLOW UP ONE (13:00)
--- NOTE | 2017-05-21 15:18 | PN ---
Subjective Date of Service: 05/21/17 Interval History: Patient seen and examined. Patient using IS in bed, appears SOB with 4-5 word sentences with appearing winded in between, but states she feels her breathing is better than before. No further hypotension, denies chest pain, no n/v, +cough , no fevers or chills. Objective Active Medications: Acetaminophen (Tylenol Tab*) 650 mg PO Q4H PRN PRN Reason: FEVER/PAIN Last Admin: 05/21/17 03:30 Dose: 650 mg Al Hydrox/Mg Hydrox/Simethicone (Maalox Plus*) 30 ml PO Q6H PRN PRN Reason: INDIGESTION Albuterol (Ventolin 2.5 Mg/3 Ml Neb.Radha*) 2.5 mg INH Q2H PRN PRN Reason: SOB/WHEEZING Last Admin: 05/21/17 02:54 Dose: 2.5 mg Albuterol/Ipratropium (Duoneb (Albuterol 2.5 Mg/Ipratropium 0.5 Mg)) 1 neb INH Q4H PRN PRN Reason: SOB/WHEEZING Last Admin: 05/21/17 07:52 Dose: 1 neb Cetirizine HCl (Zyrtec*) 5 mg PO DAILY PRN PRN Reason: CONGESTION Clotrimazole (Mycelex Garrison*) 10 mg PO QID [facility] Last Admin: 05/21/17 13:29 Dose: 10 mg Dextrose (D50w Syringe 50 Ml*) 12.5 gm IV PUSH .FOR FS < 60 - SS PRN PRN Reason: FS < 60 Docusate Sodium (Colace Cap*) 100 mg PO BID PRN PRN Reason: CONSTIPATION Heparin Sodium (Porcine) (Heparin Vial(*)) 5,000 units SUBCUT Q8HR [facility] Last Admin: 05/21/17 13:27 Dose: 5,000 units Cefepime HCl (Maxipime 2 Gm In Dextrose Duplex (*)) 2 gm in 50 mls @ 100 mls/ hr IV Q12H [facility] Last Admin: 05/21/17 14:51 Dose: 100 mls/hr Azithromycin 250 mg/ Sodium (Chloride) 250 mls @ 250 mls/hr IVPB Q24H [facility] Last Admin: 05/20/17 20:19 Dose: 250 mls/hr Vancomycin HCl 1,250 mg/ (Sodium Chloride) 250 mls @ 166.667 mls/hr IVPB Q12H [facility] Last Admin: 05/21/17 01:49 Dose: 166.667 mls/hr Sodium Chloride (Ns 0.9% 1000 Ml*) 1,000 mls @ 75 mls/hr IV PER RATE [facility] Last Admin: 05/21/17 09:29 Dose: 75 mls/hr Insulin Human Lispro (Humalog*) 0 units SUBCUT AC [facility] PRN Reason: Protocol Last Admin: 05/21/17 13:27 Dose: 5 unit Metformin HCl (Glucophage*) 500 mg PO DAILY [facility] Last Admin: 05/21/17 09:30 Dose: 500 mg Mometasone Furoate/Formoterol Fumar (Dulera 200/5 Mdi*) 2 puff INH BID [facility] Last Admin: 05/21/17 07:52 Dose: 2 puff Montelukast Sodium (Singulair Tab*) 10 mg PO BEDTIME [facility] Last Admin: 05/20/17 20:20 Dose: 10 mg Omeprazole (Prilosec Cap*) 20 mg PO 0600 [facility] Last Admin: 05/21/17 06:06 Dose: 20 mg Ondansetron HCl (Zofran Inj*) 4 mg IV Q4H PRN PRN Reason: NAUSEA/VOMITING Prednisone (Deltasone Tab*) 40 mg PO DAILY [facility] Last Admin: 05/21/17 09:29 Dose: 40 mg Roflumilast (Daliresp (Nf)) 500 mcg PO DAILY [facility] Last Admin: 05/21/17 09:35 Dose: Not Given Senna (Senokot Tab*) 1 tab PO BID PRN PRN Reason: CONSTIPATION Tiotropium [place] (Spiriva Cap.Inh*) 1 cap INH DAILY [facility] Last Admin: 05/21/17 07:52 Dose: 1 cap Vital Signs - 8 hr 05/21/17 05/21/17 05/21/17 07:35 07:58 08:00 Temperature 97.4 F Pulse Rate 67 71 Respiratory 16 18 18 Rate Blood Pressure 126/76 (mmHg) O2 Sat by Pulse 95 95 Oximetry 05/21/17 11:38 Temperature 97.9 F Pulse Rate 69 Respiratory 16 Rate Blood Pressure 115/66 (mmHg) O2 Sat by Pulse 97 Oximetry Oxygen Devices in Use Now: Nasal Cannula Appearance: Alert, NAD Eyes: No Scleral Icterus, PERRLA Ears/Nose/Mouth/Throat: Mucous Membranes Moist Neck: NL Appearance and Movements; NL JVP, Trachea Midline Respiratory: - - Accessory muscle use, increased WOB, mildly tachypneic, expiratory wheezes and diminished throughout lung lorenzo Cardiovascular: NL Sounds; No Murmurs; No JVD, RRR, No Edema Abdominal: NL Sounds; No Tenderness; No Distention Extremities: No Clubbing, Cyanosis Skin: No Rash or Ulcers Neurological: Alert and Oriented x 3 Nutrition: Taking PO's Result Diagrams: 05/20/17 05:15 05/21/17 05:53 Microbiology and Other Data: Microbiology 05/20/17 08:18 Gram Stain - Final Sputum Expectorated 05/20/17 02:10 Nasal Screen MRSA (PCR)(RODO) - Final Nasal Mrsa Detected 05/20/17 01:05 Legionella Urinary Antigen - Final Urine Negative Legionella Streptococcus pneumoniae Ag Screen - Final Negative S. pneumo Antigen Assess/Plan/Problems-Billing Assessment: This is a 71 year old female patient with hx of smoking and COPD that presented with acute SOB, cough and hypotension, downgraded from ICU, off pressors. - Patient Problems (1) COPD exacerbation Code(s): J44.1 - CHRONIC OBSTRUCTIVE PULMONARY DISEASE W (ACUTE) EXACERBATION SNOMED Code(s): 054874991245316 Comment: - Continue cefepime, prednisone, tiotropium, roflumilast and continuous O2 - Duonebs PRN - IS while awake - Will consult Dr. Crabtree, concerned she may be end-stage COPD - Walking sats on and off O2 if she can tolerate - Would benefit from PFTs (2) Hypotension Comment: - s/p aggressive fluid resuscitation - Off pressors - Normotensive (3) Diabetes Code(s): E11.9 - TYPE 2 DIABETES MELLITUS WITHOUT COMPLICATIONS SNOMED Code(s) : 23051219 Comment: - Hold metformin - Cover hyperglycemia with SS lispro (4) GERD (gastroesophageal reflux disease) Current Visit: No Status: Acute Code(s): K21.9 - GASTRO-ESOPHAGEAL REFLUX DISEASE WITHOUT ESOPHAGITIS SNOMED Code(s): 828977108 Comment: - Continue PPI (5) DVT prophylaxis Current Visit: No Status: Acute Code(s): ODT5102 - SNOMED Code(s): 073003125 Comment: - HSQ (6) Full code status Code(s): Z78.9 - OTHER SPECIFIED HEALTH STATUS SNOMED Code(s): 216464081 Status and Disposition: Remain inpatient
[2017-05-21] MEDS: Azithromycin IV(*) 250 MG in NS 0.9% 250 ML* 250 ML IVPB SCH ×2 (19:51→21:21)
[2017-05-21] MEDS: Montelukast Sodium TAB* 10 MG PO SCH (21:39)
[2017-05-21] MEDS ORDERED: Vancomycin per Pharmacy* NOTE FOLLOW UP PRN (23:13)
[2017-05-22] MEDS: Vancomycin(*) 1,250 MG in NS 0.9% 250 ML* 250 ML IVPB SCH (00:58)
[2017-05-22] MEDS: Cefepime 2 GM in Dextrose(*) 2 GM/50 ML BAG IV SCH ×2 (03:00→15:29)
[2017-05-22] MEDS: Omeprazole CAP* 20 MG PO SCH (05:55)
[2017-05-22] MEDS: Heparin VIAL(*) 5000 UNITS/ML VIAL (FIVE THOUSAND) SUBCUT SCH ×3 (05:55→21:08)
[2017-05-22] MEDS: Albuterol/Ipratropium NEB.SOL* Albuterol 2.5 MG/Ipratropium 0.5 MG 3 ML INH PRN ×3 (07:45→22:37)
[2017-05-22] MEDS: Tiotropium CAP.INH* CAP.INH/18 MCG (USE ORDER SET !) INH SCH (07:46)
[2017-05-22] MEDS: Mometasone/Formoter 200/5 MDI INH SCH ×2 (07:46→20:30)
[2017-05-22] MEDS: ROFLUMILAST 500 MCG PO SCH (08:46)
[2017-05-22] MEDS: Insulin LISPRO* 1 UNITS UNIT SUBCUT SCH ×3 (08:46→18:03)
[2017-05-22] MEDS: predniSONE TAB* 20 MG PO SCH (08:51)
[2017-05-22] MEDS: Clotrimazole TROCHE* 10 MG TROCHE PO SCH ×4 (08:52→21:08)
--- NOTE | 2017-05-22 10:51 | PN ---
Subjective Date of Service: 05/22/17 Interval History: Ms. Trejo states that she had a "terrible night" and felt quite short of breath. She feels that she finally got better after she had her nebulizer switched from albuterol to duonebs. She has felt much better overall during the day today but continues to need 2-3L NC. She denies chest pain or other complaint. Objective Active Medications: Acetaminophen (Tylenol Tab*) 650 mg PO Q4H PRN Al Hydrox/Mg Hydrox/Simethicone (Maalox Plus*) 30 ml PO Q6H PRN Albuterol (Ventolin 2.5 Mg/3 Ml Neb.Radha*) 2.5 mg INH Q2H PRN Albuterol/Ipratropium (Duoneb (Albuterol 2.5 Mg/Ipratropium 0.5 Mg)) 1 neb INH Q4H PRN Cetirizine HCl (Zyrtec*) 5 mg PO DAILY PRN Clotrimazole (Mycelex Garrison*) 10 mg PO QID HER[facility] Dextrose (D50w Syringe 50 Ml*) 12.5 gm IV PUSH .FOR FS < 60 - SS PRN Docusate Sodium (Colace Cap*) 100 mg PO BID PRN Heparin Sodium (Porcine) (Heparin Vial(*)) 5,000 units SUBCUT Q8HR [facility] Cefepime HCl (Maxipime 2 Gm In Dextrose Duplex (*)) 2 gm in 50 mls @ 100 mls/ hr IV Q12H [facility] Azithromycin 250 mg/ Sodium (Chloride) 250 mls @ 250 mls/hr IVPB Q24H [facility] Vancomycin HCl 1,250 mg/ (Sodium Chloride) 250 mls @ 166.667 mls/hr IVPB Q12H [facility] Insulin Human Lispro (Humalog*) 0 units SUBCUT AC [facility] Mometasone Furoate/Formoterol Fumar (Dulera 200/5 Mdi*) 2 puff INH BID [facility] Montelukast Sodium (Singulair Tab*) 10 mg PO BEDTIME [facility] Omeprazole (Prilosec Cap*) 20 mg PO 0600 [facility] Ondansetron HCl (Zofran Inj*) 4 mg IV Q4H PRN Pharmacy Consult (Vancomycin Per Pharmacy*) 1 note FOLLOW UP . PRN Prednisone (Deltasone Tab*) 40 mg PO DAILY [facility] Roflumilast (Daliresp (Nf)) 500 mcg PO DAILY REPLACED BY [facility] Senna (Senokot Tab*) 1 tab PO BID PRN Tiotropium [place] (Spiriva Cap.Inh*) 1 cap INH DAILY REPLACED BY [facility] Vital Signs: Temp Pulse Resp BP Pulse Ox 98.1 F 79 16 168/80 94 05/22/17 11:10 05/22/17 11:10 05/22/17 11:10 05/22/17 11:10 05/22/17 11:10 Oxygen Devices in Use Now: Nasal Cannula Appearance: Female sitting up in bed in NAD Eyes: No Scleral Icterus Ears/Nose/Mouth/Throat: Mucous Membranes Moist Neck: Trachea Midline Respiratory: Symmetrical Chest Expansion and Respiratory Effort, - - Coarse rhonchi bilaterally Cardiovascular: NL Sounds; No Murmurs; No JVD, No Edema Abdominal: NL Sounds; No Tenderness; No Distention Lymphatic: No Cervical Adenopathy Extremities: No Edema Skin: No Rash or Ulcers Neurological: Alert and Oriented x 3, NL Muscle Strength and Tone Nutrition: Taking PO's Result Diagrams: 05/20/17 05:15 05/21/17 05:53 Microbiology and Other Data: . Assess/Plan/Problems-Billing Assessment: Ms. Trejo is a 71 year old female with hx of smoking and COPD who was admitted on 05/19/17 with COPD exacerbation, initially in ICU for hypotension on vasopressors, now resolved. - Patient Problems (1) COPD exacerbation Comment: - Stop vanco and cefepime as no clear evidence of pneumonia. Continue azithromycin, prednisone, tiotropium, roflumilast and continuous O2. - Duonebs PRN - IS while awake - Will consult Dr. Crabtree, concerned she may be end-stage COPD - Walking sats on and off O2 if she can tolerate - Would benefit from PFTs (2) Hypotension Comment: - Resolved with fluids and vasopressors. - Suspect secondary to dehydration in setting of prolonged COPD exacerbation and poor oral intake. (3) Diabetes Comment: - BG well controlled. - Hold metformin, continue SSI coverage with meals. (4) GERD (gastroesophageal reflux disease) Current Visit: No Status: Acute Code(s): K21.9 - GASTRO-ESOPHAGEAL REFLUX DISEASE WITHOUT ESOPHAGITIS SNOMED Code(s): 744455156 Comment: - Continue PPI (5) DVT prophylaxis Comment: - Heparin SQ. (6) Full code status Comment: Status and Disposition: Inpatient. Anticipate discharge to home when medically stable.
[2017-05-22] MEDS: Acetaminophen TAB* 325 MG PO PRN (21:07)
[2017-05-22] MEDS: Azithromycin IV(*) 250 MG in NS 0.9% 250 ML* 250 ML IVPB SCH (21:07)
[2017-05-22] MEDS: Montelukast Sodium TAB* 10 MG PO SCH (21:08)
--- NOTE | 2017-05-22 23:52 | CONS ---
PULMONARY CONSULTATION REPORT: DATE OF CONSULT: 05/22/17 CONSULTATION REQUESTED BY: Una Martinez NP REASON FOR CONSULT: COPD evaluation. 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 The patient presents for evaluation of worsening shortness of breath. The patient reports recent sick contact. She has seen her primary care physician 2 weeks ago for shortness of breath, URI symptoms. She was prescribed Z-Abundio and prednisone. She did not see any improvement. Shortness of breath has worsened, not relieved by her nebulizers at home. The patient also had nausea, decreased appetite with no abdominal pain. She also had dysuria. She had also had subjective fevers and chills for few days. She also had productive cough with yellow phlegm. She was not able to get her inhalers due to lack of insurance coverage. The patient was also hypotensive in the emergency room, required 2 L of IV fluids with improvement. She was admitted with diagnosis of possible sepsis and pneumonia. The patient had chest x-ray performed in the emergency room. I have personally reviewed chest x -ray images. Evidence of mild airspace opacities present bilaterally. There is mild blunting of costophrenic angles. The patient was initiated on Rocephin and Zithromax for coverage of community-acquired pneumonia. She was also initiated on prednisone and bronchodilators. The patient reported improvement mostly with DuoNebs. She was initially getting albuterol nebulization. The patient normally uses DuoNeb at home. The patient was also on Dulera, Daliresp , and Spiriva at home. She also has history of GERD and is on therapy with omeprazole. She also has allergies and takes allergy medications as needed. The patient was also noted to have elevated white count on admission. Her sodium was slightly decreased at 131. The patient reported improvement in shortness of breath finally today since she started taking DuoNebs. She, however, has been becoming significantly short of breath with minimal exertion. PAST MEDICAL HISTORY: 1. COPD, on home O2. 2. Tobacco abuse history. 3. Diabetes. 4. GERD. 5. Obesity. MEDICATIONS: 1. Albuterol 1 to 2 puffs as needed every 4 hours for shortness of breath. 2. DuoNeb q.4 hours as needed. 3 Clotrimazole. 4. Ergocalciferol. 5. Dulera 2 puffs b.i.d. 6. Loratadine. 7. Singulair. 8. Protonix. 9. Zantac. 10. Daliresp. 11. Spiriva. 12. Metformin. ALLERGIES: TORADOL, LATEX, ASPIRIN, LEVOFLOXACIN, PENICILLIN, SULFA DRUGS, CEFTRIAXONE, IBUPROFEN. FAMILY HISTORY: Mother from chronic kidney disease. Father from cancer. SOCIAL HISTORY: Lives at home with her daughter and son-in-law. 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 She quit smoking 2 to 3 weeks ago when she started feeling sick. REVIEW OF SYSTEMS: All 14 systems reviewed and as per HPI. PHYSICAL EXAM: The patient is in bed, in no apparent distress. Vital Signs: Temperature 98.1, pulse 79 beats per minute, respiratory rate 16 per minute, O2 sat 94% on 3 L, blood pressure 168/80. HEENT: Pupils are equal and reactive to light. Mucous membranes moist. Mallampati class 4 airways. Respiratory: Diminished air entry bilaterally, scattered wheezing present. Cardiovascular: S1, S2 present, regular, no murmurs, gallops, or rubs. Abdomen: Obese, bowel sounds present. Skin: No rash or bruises. Musculoskeletal: Normal range of motion. No edema. Neurological: Alert, awake, oriented x3. No focal deficits. DIAGNOSTIC STUDIES/LAB DATA: Hemoglobin 12.1, hematocrit 37, platelet count 236. WBC 11.6 with left shift. Sodium 131, potassium 4.0, chloride 102, bicarb 20, BUN 20, creatinine 0.97, calcium 7.8. Chest x-ray as described above in HPI. IMPRESSION AND RECOMMENDATIONS: 71-year-old obese female former smoker with significant smoking history, quit recently with sick contacts and URI symptoms. Influenza A and B negative. Sputum Gram stain normal nelsy with MRSA, negative legionella strep pneumo antigen. Blood cultures negative to date. The patient with acute chronic obstructive pulmonary disease exacerbation likely secondary to community-acquired pneumonia. The patient started on antibiotics for community-acquired pneumonia. She is also receiving nebulizers. She reports improvement in her symptoms mostly with DuoNeb than just albuterol. Will continue with nebulizers q.4 to 6 hours as needed. She is also on long acting bronchodilators. The patient also with symptoms concerning for sleep apnea. The patient reports longstanding history of snoring, had sleep study years ago, which was positive. Will need repeat sleep study as outpatient. Consequences of untreated sleep apnea were discussed. She will need PFTs and 6-minute walk test as outpatient. Pathophysiology of chronic obstructive pulmonary disease was discussed in detail with the patient, importance of smoking cessation was discussed. The patient is currently on Spiriva HandiHaler, reports difficulty with the technique. She would benefit from Spiriva Respimat. Can continue with Dulera. She is also on roflumilast, which is recommended for recurrent exacerbations, which she denies having. Thank you for allowing me to participate in care of your patient. Will follow up with you. [id number]/[facility] #: [id number] ADDIS
[2017-05-23] MEDS: Heparin VIAL(*) 5000 UNITS/ML VIAL (FIVE THOUSAND) SUBCUT SCH ×3 (05:50→20:06)
[2017-05-23] MEDS: Omeprazole CAP* 20 MG PO SCH (05:50)
[2017-05-23] MEDS: Albuterol/Ipratropium NEB.SOL* Albuterol 2.5 MG/Ipratropium 0.5 MG 3 ML INH PRN ×2 (06:14→20:31)
[2017-05-23] MEDS: Insulin LISPRO* 1 UNITS UNIT SUBCUT SCH ×3 (08:09→18:14)
[2017-05-23] MEDS: Mometasone/Formoter 200/5 MDI INH SCH ×2 (08:13→20:32)
[2017-05-23] MEDS: Tiotropium CAP.INH* CAP.INH/18 MCG (USE ORDER SET !) INH SCH (08:13)
[2017-05-23] MEDS: predniSONE TAB* 20 MG PO SCH (08:18)
[2017-05-23] MEDS: ROFLUMILAST 500 MCG PO SCH (08:19)
[2017-05-23] MEDS: Clotrimazole TROCHE* 10 MG TROCHE PO SCH ×4 (08:19→20:06)
--- NOTE | 2017-05-23 08:44 | PN ---
Subjective Date of Service: 05/23/17 Interval History: Ms. Trejo reports that she became quite lightheaded with ambulation last night though it is noted that she was on room air at that time. She feels better now but continues to have a coarse productive cough. She denies other complaint. Objective Active Medications: Acetaminophen (Tylenol Tab*) 650 mg PO Q4H PRN Al Hydrox/Mg Hydrox/Simethicone (Maalox Plus*) 30 ml PO Q6H PRN Albuterol (Ventolin 2.5 Mg/3 Ml Neb.Radha*) 2.5 mg INH Q2H PRN Albuterol/Ipratropium (Duoneb (Albuterol 2.5 Mg/Ipratropium 0.5 Mg)) 1 neb INH Q4H PRN Cetirizine HCl (Zyrtec*) 5 mg PO DAILY PRN Clotrimazole (Mycelex [place]arrison*) 10 mg PO QID HERMELINDA Dextrose (D50w Syringe 50 Ml*) 12.5 gm IV PUSH .FOR FS < 60 - SS PRN Docusate Sodium (Colace Cap*) 100 mg PO BID PRN Heparin Sodium (Porcine) (Heparin Vial(*)) 5,000 units SUBCUT Q8HR HERMELINDA Azithromycin 250 mg/ Sodium (Chloride) 250 mls @ 250 mls/hr IVPB Q24H HERMELINDA Insulin Human Lispro (Humalog*) 0 units SUBCUT AC HERMELINDA Mometasone Furoate/Formoterol Fumar (Dulera 200/5 Mdi*) 2 puff INH BID HERMELINDA Montelukast Sodium (Singulair Tab*) 10 mg PO BEDTIME HERMELINDA Omeprazole (Prilosec Cap*) 20 mg PO 0600 HERMELINDA Ondansetron HCl (Zofran Inj*) 4 mg IV Q4H PRN Prednisone (Deltasone Tab*) 40 mg PO DAILY HERMELINDA Roflumilast (Daliresp (Nf)) 500 mcg PO DAILY HERMELINDA Senna (Senokot Tab*) 1 tab PO BID PRN Tiotropium [place] (Spiriva Cap.Inh*) 1 cap INH DAILY HERMELINDA Vital Signs: Temp Pulse Resp BP Pulse Ox 97.3 F 69 20 165/92 98 05/23/17 05:58 05/23/17 06:15 05/23/17 06:15 05/23/17 05:58 02/16/18 06:15 Oxygen Devices in Use Now: Nasal Cannula Appearance: Female sitting up in bed in NAD Eyes: No Scleral Icterus Ears/Nose/Mouth/Throat: Mucous Membranes Moist Neck: Trachea Midline Respiratory: Symmetrical Chest Expansion and Respiratory Effort, - - Rhonchi throughout Cardiovascular: NL Sounds; No Murmurs; No JVD, No Edema Abdominal: NL Sounds; No Tenderness; No Distention Lymphatic: No Cervical Adenopathy Extremities: No Edema Skin: No Rash or Ulcers Neurological: Alert and Oriented x 3, NL Muscle Strength and Tone Nutrition: Taking PO's Result Diagrams: 05/20/17 05:15 05/21/17 05:53 Microbiology and Other Data: . Assess/Plan/Problems-Billing Assessment: Ms. Trejo is a 71 year old female with hx of smoking and COPD who was admitted on 05/19/17 with COPD exacerbation, initially in ICU for hypotension on vasopressors, now resolved. - Patient Problems (1) COPD exacerbation Comment: - Slow improvement. Plan for repeat cxray to evaluate for new infiltrate, consolidation. - Appreciate cyber security consultant consultation. - Stop vanco and cefepime. Continue cefuroxime and azithromycin, prednisone, tiotropium, roflumilast and continuous O2 with duonebs PRN. - Will need outpatient follow up for sleep study, walk test, PFTs. (2) Hypotension Comment: - Resolved with fluids and vasopressors. - Suspect secondary to dehydration in setting of prolonged COPD exacerbation and poor oral intake. (3) Diabetes Comment: - BG well controlled. - Hold metformin, continue SSI coverage with meals. (4) GERD (gastroesophageal reflux disease) Current Visit: No Status: Acute Code(s): K21.9 - GASTRO-ESOPHAGEAL REFLUX DISEASE WITHOUT ESOPHAGITIS SNOMED Code(s): 790793865 Comment: - Continue PPI (5) DVT prophylaxis Comment: - Heparin SQ. (6) Full code status Comment: Status and Disposition: Inpatient. Anticipate discharge to home when medically stable.
[2017-05-23] MEDS: ceFUROXime TAB(*) 250 MG PO SCH ×2 (11:39→20:06)
--- NOTE | 2017-05-23 11:44 | RAD ---
HISTORY: Shortness of breath COMPARISONS: May 19, 2017 VIEWS: 1: frontal portable view of the chest at 10:29 AM FINDINGS: LINES AND TUBES: None. CARDIOMEDIASTINAL SILHOUETTE: The cardiomediastinal silhouette is stable. PLEURA: The costophrenic angles are sharp. No pleural abnormalities are noted. LUNG PARENCHYMA: There is a pattern of diffuse reticular opacification. ABDOMEN: The upper abdomen is clear. There is no subphrenic gas. BONES AND SOFT TISSUES: No bone or soft tissue abnormalities are noted. IMPRESSION: INTERSTITIAL OPACIFICATION WHICH MAY REPRESENT PULMONARY INTERSTITIAL EDEMA VERSUS CHRONIC INTERSTITIAL LUNG DISEASE.
[2017-05-23] MEDS ORDERED: Furosemide IV* 10 MG/ML VIAL (40 MG) IV ONE (16:09)
--- NOTE | 2017-05-23 16:19 | PN ---
Progress Note - Progress Note Date of Service: 05/23/17 - Pulm f/u note Note: Pt seen and examined at bedside. Pt reprots slight improvement in SOB. Became light headed while walking yesterday. Is needing 3L O2 Active Medications Generic Name Dose Route Start Last Admin Trade Name Freq PRN Reason Stop Dose Admin Acetaminophen 650 mg 05/19/17 22:24 05/22/17 21:07 Tylenol Tab* PO 650 mg Q4H PRN Administration FEVER/PAIN Al Hydrox/Mg Hydrox/Simethicone 30 ml 05/19/17 22:24 Maalox Plus* PO Q6H PRN INDIGESTION Albuterol 2.5 mg 05/19/17 22:27 05/21/17 23:58 Ventolin 2.5 Mg/3 Ml Neb.Radha* INH 2.5 mg Q2H PRN Administration SOB/WHEEZING Albuterol/Ipratropium 1 neb 05/19/17 22:27 05/23/17 06:14 Duoneb (Albuterol 2.5 Mg/Ipratropium 0.5 Mg) INH 1 neb Q4H PRN Administration SOB/WHEEZING Cefuroxime Axetil 500 mg 05/23/17 10:16 05/23/17 11:39 Ceftin Tab(*) PO 500 mg BID HERMELINDA Administration Cetirizine HCl 5 mg 05/19/17 22:28 Zyrtec* PO DAILY PRN CONGESTION Clotrimazole 10 mg 05/20/17 09:00 05/23/17 13:14 Mycelex Garrison* PO 10 mg QID HERMELINDA Administration Dextrose 12.5 gm 05/19/17 22:30 D50w Syringe 50 Ml* IV PUSH .FOR FS < 60 - SS PRN FS < 60 Docusate Sodium 100 mg 05/19/17 22:24 Colace Cap* PO BID PRN CONSTIPATION Furosemide 40 mg 05/23/17 16:09 Lasix Iv* IV 05/23/17 16:10 ONCE ONE Heparin Sodium (Porcine) 5,000 units 05/20/17 06:00 05/23/17 13:14 Heparin Vial(*) SUBCUT 5,000 units Q8HR HERMELINDA Administration Azithromycin 250 mg/ Sodium 250 mls @ 250 mls/hr 05/20/17 20:00 05/22/17 21: 07 Chloride IVPB 250 mls/hr Q24H HERMELINDA Administration Insulin Human Lispro 0 units 05/22/17 11:30 05/23/17 13:14 Humalog* SUBCUT 1 unit AC HERMELINDA Administration Protocol Mometasone Furoate/Formoterol Fumar 2 puff 05/19/17 23:00 05/23/17 08:13 Dulera 200/5 Mdi* INH 2 puff BID HERMELINDA Administration Montelukast Sodium 10 mg 05/19/17 23:00 05/22/17 21:08 Singulair Tab* PO 10 mg BEDTIME HERMELINDA Administration Omeprazole 20 mg 05/20/17 06:00 05/23/17 05:50 Prilosec Cap* PO 20 mg 0600 HERMELINDA Administration Ondansetron HCl 4 mg 05/19/17 22:24 Zofran Inj* IV Q4H PRN NAUSEA/VOMITING Prednisone 40 mg 05/20/17 09:00 05/23/17 08:18 Deltasone Tab* PO 40 mg DAILY HERMELINDA Administration Roflumilast 500 mcg 05/20/17 09:00 05/23/17 08:19 Daliresp (Nf) PO Not Given DAILY HERMELINDA Senna 1 tab 05/19/17 22:24 Senokot Tab* PO BID PRN CONSTIPATION Tiotropium [place] 1 cap 05/20/17 09:00 05/23/17 08:13 Spiriva Cap.Inh* INH 1 cap DAILY HERMELINDA Administration Vital Signs Temp Pulse Resp BP Pulse Ox 97.3 F 75 18 159/83 95 05/23/17 15:51 05/23/17 13:08 05/23/17 14:42 05/23/17 13:08 05/23/17 13:08 Gen: Pt in NAD HEENT: No Scleral Icterus, Mucous Membranes Moist, MP-4 airway Neck: Trachea Midline, supple Respiratory: Symmetrical Chest Expansion and Respiratory Effort, Rhonchi present Cardiovascular: S1, S2+,No Murmurs, No Edema Abdominal: NL Sounds; No Tenderness; No Distention Lymphatic: No Cervical adenopathy Extremities: Trace Edema Skin: No Rash or Ulcers Neurological: Alert and Oriented x 3, no focal defecits Laboratory Results - last 24 hr 05/22/17 05/23/17 05/23/17 17:47 08:03 11:41 POC Glucose (mg/dL) 170 H 98 144 H Ms. Trejo is a 71 year old female with signficant smoking history, COPD, nodular opacities in lung admitted on 05/19/17 with COPD exacerbation, hypotension needed vasopressors, hemodynamically stable now Acute COPD exacerbation, PNA, acute on chronic hypoxic resp failure, possible exacerbation of inflammatory lung disease - Slow improvement, repeat cxr reviewed, no signficant improvement with b/l air space opacities - Old CT chest was reviewed, noted to have nodular opacities and linear opacities on prior CT chest since 2013 concerning for inflammatory lung disease like sarcoidosis, HSN pneumonitis vs RBILD/DIP - Currently on steroids, will c/w slow taper, will rpt CT chest in 2 months, if opacities persist, will schedule for bronchoscopy/TBBx - cefuroxime and azithromycin for CAP - c/w prednisone, tiotropium, roflumilast and nebs - continue O2, duonebs PRN. - Flutter valve - Will need sleep study, 6 min walk test, PFTs as out pt D/w Katia Gill
[2017-05-23] MEDS: Azithromycin IV(*) 250 MG in NS 0.9% 250 ML* 250 ML IVPB SCH (20:04)
[2017-05-23] MEDS: Montelukast Sodium TAB* 10 MG PO SCH (20:06)
[2017-05-24] MEDS: Heparin VIAL(*) 5000 UNITS/ML VIAL (FIVE THOUSAND) SUBCUT SCH ×2 (05:06→13:19)
[2017-05-24] MEDS: Omeprazole CAP* 20 MG PO SCH (05:06)
[2017-05-24] MEDS: Insulin LISPRO* 1 UNITS UNIT SUBCUT SCH ×2 (07:41→12:01)
[2017-05-24] MEDS: ROFLUMILAST 500 MCG PO SCH (07:49)
[2017-05-24] MEDS: ceFUROXime TAB(*) 250 MG PO SCH (07:52)
[2017-05-24] MEDS: Clotrimazole TROCHE* 10 MG TROCHE PO SCH ×2 (07:53→13:19)
[2017-05-24] MEDS: predniSONE TAB* 20 MG PO SCH (07:53)
[2017-05-24] MEDS: Mometasone/Formoter 200/5 MDI INH SCH (08:23)
[2017-05-24] MEDS: Tiotropium CAP.INH* CAP.INH/18 MCG (USE ORDER SET !) INH SCH (08:23)
--- NOTE | 2017-05-24 08:24 | PN ---
Subjective Date of Service: 05/24/17 Interval History: Ms. Trejo states that she is feeling relatively well today. She slept well through the night and has ambulated on the unit on 3L NC without lightheadedness or significant SOB and an SpO2 of 95% throughout. She denies chest pain, nausea, or abdominal pain and is tolerating oral intake well. Objective Active Medications: Acetaminophen (Tylenol Tab*) 650 mg PO Q4H PRN Al Hydrox/Mg Hydrox/Simethicone (Maalox Plus*) 30 ml PO Q6H PRN Albuterol (Ventolin 2.5 Mg/3 Ml Neb.Radha*) 2.5 mg INH Q2H PRN Albuterol/Ipratropium (Duoneb (Albuterol 2.5 Mg/Ipratropium 0.5 Mg)) 1 neb INH Q4H PRN Cefuroxime Axetil (Ceftin Tab(*)) 500 mg PO BID HERMELINDA Cetirizine HCl (Zyrtec*) 5 mg PO DAILY PRN Clotrimazole (Mycelex [place]arrison*) 10 mg PO QID HERMELINDA Dextrose (D50w Syringe 50 Ml*) 12.5 gm IV PUSH .FOR FS < 60 - SS PRN Docusate Sodium (Colace Cap*) 100 mg PO BID PRN Heparin Sodium (Porcine) (Heparin Vial(*)) 5,000 units SUBCUT Q8HR HERMELINDA Azithromycin 250 mg/ Sodium (Chloride) 250 mls @ 250 mls/hr IVPB Q24H HERMELINDA Insulin Human Lispro (Humalog*) 0 units SUBCUT AC HERMELINDA Mometasone Furoate/Formoterol Fumar (Dulera 200/5 Mdi*) 2 puff INH BID HERMELINDA Montelukast Sodium (Singulair Tab*) 10 mg PO BEDTIME HERMELINDA Omeprazole (Prilosec Cap*) 20 mg PO 0600 HERMELINDA Ondansetron HCl (Zofran Inj*) 4 mg IV Q4H PRN Prednisone (Deltasone Tab*) 40 mg PO DAILY HERMELINDA Roflumilast (Daliresp (Nf)) 500 mcg PO DAILY HERMELINDA Senna (Senokot Tab*) 1 tab PO BID PRN Tiotropium [place] (Spiriva Cap.Inh*) 1 cap INH DAILY HERMELINDA Vital Signs: Temp Pulse Resp BP Pulse Ox 97.7 F 76 22 118/70 97 05/24/17 03:36 05/24/17 03:36 05/24/17 03:36 05/24/17 03:36 05/24/17 03:36 Oxygen Devices in Use Now: Nasal Cannula Appearance: Female ambulating on unit on NAD Eyes: No Scleral Icterus Ears/Nose/Mouth/Throat: NL Teeth, Lips, Gums Neck: Trachea Midline Respiratory: Symmetrical Chest Expansion and Respiratory Effort, - - Decreased rhonchi, improved aeration Cardiovascular: NL Sounds; No Murmurs; No JVD, No Edema Abdominal: NL Sounds; No Tenderness; No Distention Lymphatic: No Cervical Adenopathy Extremities: No Edema Skin: No Rash or Ulcers Neurological: Alert and Oriented x 3, NL Muscle Strength and Tone Nutrition: Taking PO's Result Diagrams: 05/20/17 05:15 05/21/17 05:53 Microbiology and Other Data: . Assess/Plan/Problems-Billing Assessment: Ms. Trejo is a 71 year old female with hx of smoking and COPD who was admitted on 05/19/17 with COPD exacerbation, initially in ICU for hypotension on vasopressors, now resolved. - Patient Problems (1) COPD exacerbation Comment: - Continued slow improvement. - Appreciate supervisor assembly room consultation. - Continue cefuroxime and azithromycin, prednisone, tiotropium, roflumilast and continuous O2 with duonebs PRN. - Will need outpatient follow up for sleep study, walk test, PFTs. Follow up CT in 2 months. (2) Hypotension Comment: - Resolved with fluids and vasopressors. - Suspect secondary to dehydration in setting of prolonged COPD exacerbation and poor oral intake. (3) Diabetes Comment: - BG well controlled. - Resume metformin. (4) GERD (gastroesophageal reflux disease) Current Visit: No Status: Acute Code(s): K21.9 - GASTRO-ESOPHAGEAL REFLUX DISEASE WITHOUT ESOPHAGITIS SNOMED Code(s): 365972011 Comment: - Continue PPI (5) DVT prophylaxis Comment: - Heparin SQ. (6) Full code status Comment: Status and Disposition: Inpatient. Discharge to home.
[2017-05-24 10:34] VITALS: BP 141/72
--- NOTE | 2017-05-24 11:22 | PN ---
Progress Note - Progress Note Date of Service: 05/24/17 - Pulm f/u note Note: Pt seen and examined at bedside. Pt reports feeling better, hoping to go home. SOB, cough are improved, ambulated with 3L O2, sats are around 95% Active Medications Generic Name Dose Route Start Last Admin Trade Name Freq PRN Reason Stop Dose Admin Acetaminophen 650 mg 05/19/17 22:24 05/22/17 21:07 Tylenol Tab* PO 650 mg Q4H PRN Administration FEVER/PAIN Al Hydrox/Mg Hydrox/Simethicone 30 ml 05/19/17 22:24 Maalox Plus* PO Q6H PRN INDIGESTION Albuterol 2.5 mg 05/19/17 22:27 05/21/17 23:58 Ventolin 2.5 Mg/3 Ml Neb.Radha* INH 2.5 mg Q2H PRN Administration SOB/WHEEZING Albuterol/Ipratropium 1 neb 05/19/17 22:27 05/23/17 20:31 Duoneb (Albuterol 2.5 Mg/Ipratropium 0.5 Mg) INH 1 neb Q4H PRN Administration SOB/WHEEZING Cefuroxime Axetil 500 mg 05/23/17 10:16 05/24/17 07:52 Ceftin Tab(*) PO 500 mg BID HERMELINDA Administration Cetirizine HCl 5 mg 05/19/17 22:28 Zyrtec* PO DAILY PRN CONGESTION Clotrimazole 10 mg 05/20/17 09:00 05/24/17 07:53 Mycelex [place]* PO Not Given QID HERMELINDA Dextrose 12.5 gm 05/19/17 22:30 D50w Syringe 50 Ml* IV PUSH .FOR FS < 60 - SS PRN FS < 60 Docusate Sodium 100 mg 05/19/17 22:24 Colace Cap* PO BID PRN CONSTIPATION Heparin Sodium (Porcine) 5,000 units 05/20/17 06:00 05/24/17 05:06 Heparin Vial(*) SUBCUT 5,000 units Q8HR HERMELINDA Administration Azithromycin 250 mg/ Sodium 250 mls @ 250 mls/hr 05/20/17 20:00 05/23/17 20: 04 Chloride IVPB 250 mls/hr Q24H HERMELINDA Administration Insulin Human Lispro 0 units 05/22/17 11:30 05/24/17 07:41 Humalog* SUBCUT Not Given AC [facility] Protocol Mometasone Furoate/Formoterol Fumar 2 puff 05/19/17 23:00 05/24/17 08:23 Dulera 200/5 Mdi* INH 2 puff BID HERMELINDA Administration Montelukast Sodium 10 mg 05/19/17 23:00 05/23/17 20:06 Singulair Tab* PO 10 mg BEDTIME HERMELINDA Administration Omeprazole 20 mg 05/20/17 06:00 05/24/17 05:06 Prilosec Cap* PO 20 mg 0600 HERMELINDA Administration Ondansetron HCl 4 mg 05/19/17 22:24 Zofran Inj* IV Q4H PRN NAUSEA/VOMITING Prednisone 40 mg 05/20/17 09:00 05/24/17 07:53 Deltasone Tab* PO 40 mg DAILY HERMELINDA Administration Roflumilast 500 mcg 05/20/17 09:00 05/24/17 07:49 Daliresp (Nf) PO Not Given DAILY HERMELINDA Senna 1 tab 05/19/17 22:24 Senokot Tab* PO BID PRN CONSTIPATION Tiotropium [place] 1 cap 05/20/17 09:00 05/24/17 08:23 Spiriva Cap.Inh* INH 1 cap DAILY HERMELINDA Administration Vital Signs Temp Pulse Resp BP Pulse Ox 97.7 F 74 14 141/72 99 05/24/17 08:34 05/24/17 08:28 05/24/17 08:28 05/24/17 07:33 05/24/17 08:28 Gen: Pt in NAD HEENT: No Scleral Icterus, Mucous Membranes Moist, MP-4 airway Neck: Trachea Midline, supple, no JVD Respiratory: Good air entry b/l, scaterred rhonchi present b/l Cardiovascular: S1, S2+,No Murmurs, No Edema Abdominal: Obese, BS+, NT Lymphatic: No Cervical adenopathy Extremities: Trace Edema Skin: No Rash or Ulcers Neurological: Alert and Oriented x 3, no focal deficits Laboratory Results - last 24 hr 05/23/17 05/23/17 05/24/17 11:41 16:48 07:22 POC Glucose (mg/dL) 144 H 204 H 94 MsAndreia Trejo is a 71 year old female with signficant smoking history, COPD, nodular opacities in lung admitted on 05/19/17 with COPD exacerbation, hypotension needed vasopressors, hemodynamically stable now Acute COPD exacerbation, PNA, acute on chronic hypoxic resp failure, possible exacerbation of inflammatory lung disease - Needing less O2 now, will check O2 with ambulation and at rest - Pt jhas O2 at home, doesnot have portable O2 concentrator - Old CT chest - nodular opacities and linear opacities since 2013 concerning for inflammatory lung disease like sarcoidosis, HSN pneumonitis vs RBILD/DIP - Currently on steroids, will c/w slow taper, will rpt CT chest in 2 months, if opacities persist, will schedule for bronchoscopy/TBBx - to complete 7 day course for CAP - c/w prednisone, tiotropium, roflumilast and nebs - continue O2, duonebs PRN. - Flutter valve - Will need sleep study, 6 min walk test, PFTs as out pt For d/c home today D/w Katia Gill
--- NOTE | 2017-05-25 03:56 | DS ---
CC: Gloria Melo NP * HOSPITAL MEDICINE DISCHARGE SUMMARY: DATE OF ADMISSION: 05/19/17 DATE OF DISCHARGE: 05/24/17 PRIMARY CARE PROVIDER: Gloria Melo NP ATTENDING PHYSICIAN: Dr. Kendrick Soria * (dictation provided by Katia Gill NP). PRIMARY DIAGNOSES: 1. Chronic obstructive pulmonary disease exacerbation. 2. Pneumonia. SECONDARY DIAGNOSES: 1. Diabetes. 2. Gastroesophageal reflux disease. MEDICATIONS AT THE TIME OF DISCHARGE: 1. Prednisone 10 mg via slow taper. 2. Cefuroxime 500 mg p.o. b.i.d. x5 days. 3. Azithromycin 250 mg p.o. daily x2 days. 4. Albuterol inhaler p.r.n.. 5. DuoNeb nebulizer treatments p.r.n. 6. Clotrimazole lulú 10 mg p.o. 5 times a day. 7. Fluconazole 150 mg p.o. x1. 8. Ergocalciferol 50,000 units p.o. q.7 days. 9. Advair 500/50 one puff inhaled b.i.d. 10. Loratadine 10 p.o. at bedtime. 11. Montelukast 10 mg p.o. at bedtime. 12. Pantoprazole 40 mg p.o. at bedtime. 13. Zantac 150 mg p.o. daily p.r.n. 14. Roflumilast 500 mcg p.o. daily. 15. Spiriva 18 mcg inhaled daily. 16. Metformin 500 mg p.o. q.p.m. HOSPITAL COURSE: Ms. Trejo is a 71-year-old female with a past medical history of COPD, recently stopped smoking in April, who presented to the hospital on 05/19/17 with concern for shortness of breath. Please see the dictated H and P from Dr. Lilliam Wagoner for complete details. In brief, the patient reported she had been unwell for about 2 weeks. She was treated with a Z-Abundio and prednisone at home. Despite that, she continued to feel unwell. In the emergency room here, she had chest x-ray, which showed no infiltrate. She had a temperature to 100.1 and she was requiring 3 L nasal cannula to maintain her O2 saturation greater than 95%. Her labs showed a mild leukocytosis at 11.3 and hyponatremia with a sodium of 123 and CRP of 96.94. The patient was quite hypotensive initially with blood pressure running as low as 60s. Ms. Trejo was admitted to the intensive care unit. She was aggressively hydrated and started on vasopressors. With this, her blood pressure responded appropriately and she was able to be transferred out of the intensive care unit the following day. It was suspected that her hypotension was related to dehydration in the setting of prolonged COPD and pneumonia at home. Ms. Trejo was seen in consultation by Dr. Vanita Crabtree from Pulmonology. I refer you to her note for complete details, but in brief, she agreed that the patient had likely COPD exacerbation with pneumonia and agreed with the treatments that we had undertaken. She further recommended that the patient should have a CT chest in 2 months to ensure that opacities present on the previous CT from 2013 had resolved. She had concern that the patient could have possible inflammatory lung disease like sarcoidosis, pneumonitis or RB-ILD/DIP. She further recommended that the patient have a sleep study, a 6-minute walk test, and PFT as outpatient. Ms. Trejo is doing well today. She ambulated on the unit with an O2 saturation greater than 95% on 3 L nasal cannula. She has oxygen at home that was available at night, which she can now use during the day. She will complete a course of cefuroxime, azithromycin, and prednisone. She will follow up with her primary care provider, Gloria Melo NP, and with Dr. Crabtree. DISPOSITION: Home. DIET: Consistent carbohydrate. ACTIVITY: As tolerated. FOLLOWUP PLANS: 1. Please follow up with Gloria Melo NP, within 1 week. 2. Please follow up with Dr. Crabtree within 1 month. TIME SPENT: Approximately 60 minutes was spent in the discharge of this patient, more than half that time was spent with the patient at the bedside reviewing the events leading up this hospitalization, performing the physical examination, and reviewing my plan of care. KATIA GILL NP [id number]/[facility] #: [id number] [facility]
== END 2017-05-24 14:00 | disposition home or self-care (01) | DRG 193 ==
LOC: ED 19:33 → ICU 22:24 → MED 05-20 11:36
PROVIDERS: ADMIT Pediatrics; ATTEND Internal Medicine
PROC: 3E033XZ Introduction of Vasopressor into Peripheral Vein, Percutaneous Approach (ICD-10-PCS; principal; 2017-05-19)
DX: J18.9 Pneumonia, unspecified organism (principal); J96.21 Acute and chronic respiratory failure with hypoxia; Z99.81 Dependence on supplemental oxygen; K44.9 Diaphragmatic hernia without obstruction or gangrene; G43.909 Migraine, unspecified, not intractable, without status migrainosus; F32.9 Major depressive disorder, single episode, unspecified; F43.10 Post-traumatic stress disorder, unspecified; E66.9 Obesity, unspecified; I95.9 Hypotension, unspecified; E11.51 Type 2 diabetes mellitus with diabetic peripheral angiopathy without gangrene; E11.36 Type 2 diabetes mellitus with diabetic cataract; E87.1 Hypo-osmolality and hyponatremia; J44.1 Chronic obstructive pulmonary disease with (acute) exacerbation; J44.0 Chronic obstructive pulmonary disease with (acute) lower respiratory infection; E86.0 Dehydration; K21.9 Gastro-esophageal reflux disease without esophagitis; Z88.1 Allergy status to other antibiotic agents; Z88.8 Allergy status to other drugs, medicaments and biological substances; Z88.0 Allergy status to penicillin; Z88.2 Allergy status to sulfonamides; Z88.6 Allergy status to analgesic agent; Z87.891 Personal history of nicotine dependence; Z91.040 Latex allergy status; Z80.9 Family history of malignant neoplasm, unspecified; Z84.1 Family history of disorders of kidney and ureter; Z86.711 Personal history of pulmonary embolism; Z87.01 Personal history of pneumonia (recurrent); Z90.710 Acquired absence of both cervix and uterus; Z82.49 Family history of ischemic heart disease and other diseases of the circulatory system; Z83.3 Family history of diabetes mellitus; Z83.6 Family history of other diseases of the respiratory system; Z68.32 Body mass index [BMI] 32.0-32.9, adult; Z79.84 Long term (current) use of oral hypoglycemic drugs
CPT/HCPCS: 36415; 71045; 80048; 80053; 80202; 82150; 82565; 83605; 83880; 84145; 84484; 84520; 85025; 85610; 85730; 86140; 87040; 87070; 87077; 87186; 87205; 87502; 87641; 87899; 93005; 94640; 94760; 99285; 99406; A9270-GY; J0456; J0692; J0696; J1644; J1940; J2405; J2930; J3370; J3475; J7512

== ENCOUNTER 2018-09-18 10:02 | Emergency (ER) | payer MEDICARE, MEDICAID ==
[2018-09-18 10:15] VITALS: BP 133/82
--- NOTE | 2018-09-18 11:11 | UC ---
Throat Pain/Nasal Rogerio HPI - HPI Summary HPI Summary: Ill with head cold and sinus pressure for the past week. - History of Current Complaint Chief Complaint: UCRespiratory Stated Complaint: SINUS ISSUE Time Seen by Provider: 09/18/18 10:54 Hx Obtained From: Patient ?: No Onset/Duration: Gradual Onset Severity: Mild Pain Intensity: 0 Cough: Nonproductive Associated Signs & Symptoms: Positive: Sinus Discomfort, Nasal Discharge - Allergies/Home Medications Allergies/Adverse Reactions: Allergies Allergy/AdvReac Type Severity Reaction Status Date / Time ceftriaxone Allergy Hives Verified 09/18/18 10:08 celecoxib [From Celebrex] Allergy Hives Verified 09/18/18 10:17 ketorolac Allergy Anaphylatic Verified 09/18/18 10:08 Shock latex Allergy Anaphylatic Verified 09/18/18 10:08 Shock Latex, Natural Rubber Allergy Anaphylatic Verified 09/18/18 10:08 Shock lisinopril Allergy Hives Verified 09/18/18 10:17 Penicillins Allergy Hives Verified 09/18/18 10:08 Sulfa (Sulfonamide Allergy Hives Verified 09/18/18 10:08 Antibiotics) varenicline [From Chantix] Allergy resp Verified 09/18/18 10:17 distress aspirin AdvReac Anxiety Verified 09/18/18 10:08 ibuprofen AdvReac See Comment Verified 09/18/18 10:08 levofloxacin AdvReac Vomiting Verified 09/18/18 10:08 Home Medications: Home Medications Atorvastatin Calcium [Lipitor] 40 mg PO 09/18/18 [History Confirmed 09/18/18] Calcium Carbonate/Vitamin D3 [Calcium 1000 + D] 1 tab PO 09/18/18 [History] Isosorbide Mononitrate [Isosorbide Mononitrate ER] 30 mg PO 09/18/18 [History] Losartan Potassium [Cozaar] 50 mg PO 09/18/18 [History] Mometasone/Formoter 200/5 MDI* [Dulera 200/5 MDI*] 2 puff INH BID 09/18/18 [ History Confirmed 09/18/18] Ranolazine (Nf) [Ranexa] 1,000 mg 09/18/18 [History] Tizanidine HCl 4 mg PO 09/18/18 [History] PMH/Surg Hx/FS Hx/Imm Hx Previously Healthy: Yes Respiratory History: COPD, Asthma - Surgical History Surgical History: Yes Surgery Procedure, Year, and Place: hysterectomy, knee, sinus, wrist injury repaired - Family History Known Family History: Positive: Cardiac Disease, Diabetes, Respiratory Disease, Other - cancer, kidney failure - Social History Alcohol Use: None Substance Use Type: None Smoking Status (MU): Heavy Every Day Tobacco Smoker Type: Cigarettes Amount Used/How Often: 1/2 PPD Have You Smoked in the Last Year: Yes Household Exposure Type: Cigarettes - Immunization History Most Recent Influenza Vaccination: 2012- jan Most Recent Tetanus Shot: 2009 Most Recent Pneumonia Vaccination: 2009 Review of Systems All Other Systems Reviewed And Are Negative: Yes ENT: Positive: Ear Ache - Mild left earache, Nasal Discharge - Yellow nasal coryza, Sinus Congestion, Sinus Pain/Tenderness Respiratory: Positive: Cough - Occasional coughing however patient COPD so she has a chronic cough. Is Patient Immunocompromised?: No Physical Exam Triage Information Reviewed: Yes Appearance: Well-Appearing, No Pain Distress, Well-Nourished Vital Signs: Initial Vital Signs Temp 98 F 09/18/18 10:13 Pulse 81 09/18/18 10:13 Resp 18 09/18/18 10:13 BP 133/82 09/18/18 10:13 Pulse Ox 99 09/18/18 10:13 Vital Signs Reviewed: Yes Eyes: Positive: Conjunctiva Clear ENT: Positive: Pharynx normal, Nasal congestion, Nasal drainage - Yellow nasal coryza, TM red - Left tympanic membrane is mildly erythematous but with good landmarks., Sinus tenderness, Uvula midline Neck: Positive: Supple, Nontender, No Lymphadenopathy Respiratory: Positive: No respiratory distress, No accessory muscle use, Rhonchi - Mild rhonchi in the left upper lobe posteriorly however no distress and with good air movement. Cardiovascular: Positive: RRR, No Murmur, Pulses Normal, Brisk Capillary Refill Musculoskeletal Exam: Normal Neurological Exam: Normal Psychological Exam: Normal Skin Exam: Normal Throat Pain/Nasal Course/Dx - Course Course Of Treatment: Patient has been comfortable here. She is to follow-up with her primary care provider in 4 or 5 days if no improvement I did urge her to stop smoking. - Differential Dx/Diagnosis Provider Diagnosis: Sinusitis Discharge - Sign-Out/Discharge Documenting (check all that apply): Patient Departure All imaging exams completed and their final reports reviewed: No Studies - Discharge Plan Condition: Fair Disposition: HOME Prescriptions: DOXYcycline CAP(*) [DOXYcycline 100MG CAP(*)] 100 mg PO BID 10 Days #20 cap Patient Education Materials: Sinusitis (ED) Referrals: Gloria Melo [Primary Care Provider] - Additional Instructions: Stop smoking, do not eat or drink dairy products, antacids or multivitamins 2 hours before you take the doxycycline and 2 hours after you take doxycycline however be sure and take it with food. Follow-up with your primary care provider in 4 or 5 days if no improvement. - Billing Disposition and Condition Condition: FAIR Disposition: Home
== END 2018-09-18 11:21 | disposition home or self-care (01) ==
LOC: UCEAST 10:02
DX: J32.9 Chronic sinusitis, unspecified (principal); R05 Cough; J44.9 Chronic obstructive pulmonary disease, unspecified; F17.210 Nicotine dependence, cigarettes, uncomplicated; Z88.0 Allergy status to penicillin; Z88.2 Allergy status to sulfonamides; Z91.040 Latex allergy status
CPT/HCPCS: 99212; G0463

== ENCOUNTER 2018-12-13 18:36 | Emergency (ER) | payer MEDICARE, MEDICAID ==
[2018-12-13 18:45] VITALS: BP 104/77
--- NOTE | 2018-12-13 19:19 | UC ---
Back Pain HPI - HPI Summary HPI Summary: 73 year old female, PMH + for heavy tobacco use, muscle spasms lower legs, presents after being pushed down by a horse (head) about a week ago. Patient states she flew off the ground, about 10 feet, landed on back, then hit head on ground. Unsure if lost consciousness, but states everything went "black" for a few seconds. SInce, patient c/o- - severe rib pain, painful with movement, breathing since incident. - "entire back pain" worse in neck - RIVERO- back of neck/ head, worse with lying down/ waking up in AM - R hand numbness, tingling, intermittently, occassionaly hand turns cold, blue , not long lasting. - History of Current Complaint Chief Complaint: UCTrauma Stated Complaint: RIB PAIN Time Seen by Provider: 12/13/18 18:55 Hx Obtained From: Patient ?: No Onset/Duration: Sudden Onset, Lasting Days - 7 Timing: Constant Severity Initially: Severe Severity Currently: Severe Pain Intensity: 8 Pain Scale Used: 0-10 Numeric Back Pain: Is Diffuse Character: Throbbing, Spasmodic, Stiffness Aggravating Factor(s): Movement, Lifting, Walking Alleviating Factor(s): Rest Associated Signs And Symptoms: Positive: Weakness - right hand, Numbness - right hand, Pain with Weight Bearing. Negative: Swelling, Redness, Bruising, Fever, Abdominal Pain, Flank Pain, Bladder Incontinence, Bowel Incontinence - Allergies/Home Medications Allergies/Adverse Reactions: Allergies Allergy/AdvReac Type Severity Reaction Status Date / Time ceftriaxone Allergy Hives Verified 12/13/18 18:46 celecoxib [From Celebrex] Allergy Hives Verified 12/13/18 18:46 ketorolac Allergy Anaphylatic Verified 12/13/18 18:46 Shock latex Allergy Anaphylatic Verified 12/13/18 18:46 Shock Latex, Natural Rubber Allergy Anaphylatic Verified 12/13/18 18:46 Shock lisinopril Allergy Hives Verified 12/13/18 18:46 Penicillins Allergy Hives Verified 12/13/18 18:46 Sulfa (Sulfonamide Allergy Hives Verified 12/13/18 18:46 Antibiotics) varenicline [From Chantix] Allergy resp Verified 12/13/18 18:46 distress aspirin AdvReac Anxiety Verified 12/13/18 18:46 ibuprofen AdvReac See Comment Verified 12/13/18 18:46 levofloxacin AdvReac Vomiting Verified 12/13/18 18:46 PMH/Surg Hx/FS Hx/Imm Hx Previously Healthy: No - Surgical History Surgical History: Yes Surgery Procedure, Year, and Place: hysterectomy, knee, sinus, wrist injury repaired - Family History Known Family History: Positive: Cardiac Disease, Diabetes, Respiratory Disease, Other - cancer, kidney failure, Non-Contributory - Social History Alcohol Use: None Substance Use Type: None Smoking Status (MU): Heavy Every Day Tobacco Smoker Type: Cigarettes Amount Used/How Often: 1/2 PPD Have You Smoked in the Last Year: Yes Household Exposure Type: Cigarettes - Immunization History Most Recent Influenza Vaccination: 2012- jan Most Recent Tetanus Shot: 2009 Most Recent Pneumonia Vaccination: 2009 Review of Systems All Other Systems Reviewed And Are Negative: Yes Constitutional: Positive: Negative Respiratory: Positive: Negative Cardiovascular: Positive: Negative Musculoskeletal: Positive: Arthralgia, Decreased ROM, Myalgia Neurological: Positive: Headache Is Patient Immunocompromised?: No Physical Exam Triage Information Reviewed: Yes Appearance: Well-Appearing, Well-Nourished, Pain Distress - mild at rest Vital Signs: Initial Vital Signs Temp 98.5 F 12/13/18 18:42 Pulse 102 12/13/18 18:42 Resp 18 12/13/18 18:42 BP 104/77 12/13/18 18:42 Pulse Ox 100 12/13/18 18:42 Vital Signs Reviewed: Yes Eyes: Positive: Conjunctiva Clear, Other: - EMOI ENT: Positive: Hearing grossly normal Neck: Positive: Supple, No Lymphadenopathy, Tenderness @ - entire cervical spine to moderate palpation Respiratory: Positive: Chest non-tender, Lungs clear, Normal breath sounds, No respiratory distress, No accessory muscle use, Other: - no deformities noted, mild ttp over b/l lower ribs, no flail chest Cardiovascular: Positive: RRR, No Murmur, Pulses Normal - rad, ulnar pulses b/l 2+ Abdomen Description: Positive: Nontender, No Organomegaly, Soft. Negative: CVA Tenderness (R), CVA Tenderness (L) Musculoskeletal: Positive: Strength Intact - Knee, hip b/l, ROM Intact - Knee, hip b/l, Other: - pain with elevation shoulders b/l, decreased ROM cerivcal spine due to pain Neurological Exam: Normal Neurological: Positive: Other: - SITLT all distal extremities Psychological Exam: Normal Skin Exam: Normal - no open wounds, sores Back Pain Course/Dx - Course Course Of Treatment: DUe to patient symptoms, patient advised to go to ER for further imaging as currently only radiograph is available at . Patient in agreement. Discussed ambulance, patient refused as does not feel condition warrents. Discussed potential for cervical injury. - Differential Dx/Diagnosis Provider Diagnosis: Acute cervical sprain, Concussion Discharge ED - Sign-Out/Discharge Documenting (check all that apply): Patient Departure All imaging exams completed and their final reports reviewed: No Studies - Discharge Plan Condition: Guarded Disposition: HOME-RECOMMEND TO ED Patient Education Materials: Cervical Sprain (ED), Cervical Radiculopathy (ED) Referrals: Gloria Melo [Primary Care Provider] - Additional Instructions: Due to + Rhomberg test, extreme tenderness over cervical spine, throbbing headache not relieved in 7 days, potential LOC, patient was advised to go to ER for further testing/ evaluation. - Billing Disposition and Condition Condition: GUARDED Disposition: Home-Recommend to ED
== END 2018-12-13 19:33 | disposition home health service (06) ==
LOC: UCEAST 18:36
DX: S13.9XXA Sprain of joints and ligaments of unspecified parts of neck, initial encounter (principal); S06.0X9A Concussion with loss of consciousness of unspecified duration, initial encounter; V80.010A Animal-rider injured by fall from or being thrown from horse in noncollision accident, initial encounter; Y93.52 Activity, horseback riding; Y92.9 Unspecified place or not applicable; Y99.8 Other external cause status; F17.210 Nicotine dependence, cigarettes, uncomplicated; Z88.0 Allergy status to penicillin; Z88.2 Allergy status to sulfonamides; Z91.040 Latex allergy status
CPT/HCPCS: 99212; G0463

== ENCOUNTER 2019-06-09 09:32 | Day surgery (SDC) | payer MEDICARE, MEDICAID ==
[~2019-06-09 09:32] MED LIST: Acetaminophen TAB* 325 MG PO ONE; Buffered Lidocaine 1% SYRIN* 1 ML/SYRINGE INTRADERM ONE; Lactated Ringers 1000 ML Bag* 1,000 ML IV SCH
[2019-06-09] MEDS ORDERED: Buffered Lidocaine 1% SYRIN* 1 ML/SYRINGE INTRADERM ONE (09:58)
[2019-06-09] MEDS ORDERED: Acetaminophen TAB* 325 MG ONE (09:58)
[2019-06-09] MEDS ORDERED: oxyCODONE TAB* 5 MG TAB PO PRN ×2 (10:07→14:31)
[2019-06-09] MEDS ORDERED: Naloxone* 0.4 MG/ML 1 ML VIAL IV PRN ×2 (10:07→14:33)
[2019-06-09] MEDS ORDERED: diPHENhydraMINE IV* 50 MG/ML 1 ml VIAL (BENADRYL) IV PRN ×2 (10:07→14:31)
[2019-06-09] MEDS ORDERED: PROCHLORPERAZINE INJ 5 MG/ML 2 ML VIAL IV PRN ×2 (10:07→14:31)
[2019-06-09] MEDS ORDERED: Levalbuterol 0.63MG/3ML NEB* UNIT OF USE INH ONE ×3 (11:06→11:23)
[2019-06-09] MEDS ORDERED: Midazolam* 1 MG/ML 2 ML VIAL (2 MG) ONE (11:35)
[2019-06-09] MEDS ORDERED: fentaNYL* 50 MCG/ML 2 ML VIAL (100 MCG VIAL) ONE (11:36)
[2019-06-09] MEDS ORDERED: Lidocaine 2% PF * 5 ML VIAL ONE (11:37)
[2019-06-09] MEDS ORDERED: Propofol* 10 MG/ML 20 ML BTL ONE (11:37)
[2019-06-09] MEDS ORDERED: Neostigmine Methylsulfate* 3 MG/3 ML SYRINGE ONE ×2 (11:39→13:02)
[2019-06-09] MEDS ORDERED: Glycopyrrolate IV* 0.2 MG/ML 1 ML VIAL ONE ×2 (11:39→13:01)
[2019-06-09] MEDS ORDERED: Triamcinolone Acetonide* 40 MG/ML 1 ML VIAL ONE (11:56)
[2019-06-09] MEDS ORDERED: Oxymetazoline 0.05% NASAL SPR* 15 ML BTL ONE (11:56)
[2019-06-09] MEDS ORDERED: Lidocaine 2% w/ EPI 1:200,000* 20 ML SDV VIAL ONE (11:56)
[2019-06-09] MEDS ORDERED: EPHEDrine (Pressors)* 50 MG/ML VIAL ONE (12:51)
[2019-06-09] MEDS ORDERED: Gelfoam Sponge SIZE 100* SPONGE ONE (13:01)
[2019-06-09] MEDS: HYDROmorphone INJ1* 1 MG/ML SYRINGE IV PRN ×3 (14:00→14:22)
[2019-06-09] MEDS ORDERED: HYDROmorphone INJ1* 1 MG/ML SYRINGE ONE (14:00)
[2019-06-09] MEDS ORDERED: Rocuronium* 10 MG/ML VIAL ONE (14:07)
[2019-06-09] MEDS ORDERED: Ondansetron INJ* 2 MG/ML VIAL ONE (14:20)
[2019-06-09 16:03] VITALS: BP 98/73
--- NOTE | 2019-06-10 00:51 | OP ---
OPERATIVE REPORT: DATE OF OPERATION: 06/09/[address] - [facility] DATE OF : 49 SURGEON: Inder Ruiz MD. PRE-OP DIAGNOSIS: Chronic sinusitis, nasal polyposis. POST-OP DIAGNOSIS: Chronic sinusitis, nasal polyposis. OPERATIVE PROCEDURE: Bilateral videoendoscopic maxillary antrostomy, anterior and posterior ethmoidectomy, and bilateral frontal duct exploration and dilatation. BRIEF HISTORY: This 73-year-old female with longstanding history of nasal polyps, worsening symptoms of nasal dyspnea, chronic sinusitis compounding her COPD. DESCRIPTION OF PROCEDURE: The patient was taken to the operating room. General anesthesia was given, and the patient was intubated. Nose was decongested with Afrin placed pledgets. 2% lidocaine and epinephrine was then infiltrated into the polyps on both sides, uncinate process region and also in the middle turbinate area. Microshaver was then used to remove the nasal polyps. Image guidance was utilized after using it as a fiducial points. A 0- degree telescope and 30-degree telescope and other endoscopic sinus surgery instrumentation was used to remove. Now, we turned our attention at removing of the ethmoidal polyps and then resecting them out towards the skull base and superior into the nasal frontal duct area dilating the nasal frontal duct region. Removing polyps in the maxillary sinus. The same was done on the right side again removing most of the polyps identified in the middle turbinate and then coursing towards the skull base and superiorly in the nasal frontal duct area. This was confirmed using the image guidance. Maxillary antrum was widened further and large amounts of polyps were removed. Once copious irrigation was carried out sinus foam was used as a spacer between the middle turbinate, lateral nasal along both sides. The patient was then awakened, extubated, and sent to recovery room in stable condition. Instrument and sponge count were correct. Blood loss was approximately 150 cc. [id number]/[facility] #: [id number] [facility] CENTERGuerrero
== END 2019-06-09 16:05 | disposition home or self-care (01) ==
LOC: OR 09:32
PROVIDERS: ATTEND Otolaryngology
DX: J32.0 Chronic maxillary sinusitis (principal); J32.2 Chronic ethmoidal sinusitis; J44.9 Chronic obstructive pulmonary disease, unspecified; F17.210 Nicotine dependence, cigarettes, uncomplicated; K21.9 Gastro-esophageal reflux disease without esophagitis; I10 Essential (primary) hypertension; E11.9 Type 2 diabetes mellitus without complications
CPT/HCPCS: 88305; 88312; A9270-GY; J1170; J2250; J2405; J2704; J2710; J3010; J3301